=== PATIENT | male | born 1940 | race Caucasian/White ===

== ENCOUNTER 2018-12-12 16:07 | Emergency (ER) | payer MEDICARE, OTHER ==
[2018-12-12] MEDS ORDERED: Diphtheria,Pertussis(Acell),Tetanus Vaccine 0.5 ML Syringe IM ONE (16:45)
[2018-12-12] MEDS ORDERED: Lidocaine 1% 10 ML MDV INJECT ONE (17:46)
[2018-12-12] MEDS ORDERED: cefTRIAXone 1 GM, Lidocaine 1% 2.1 ML IM SCH ×2 (18:15)
--- NOTE | 2018-12-12 18:15 | EDM.PDOC ---
ED HPI GENERAL MEDICAL PROBLEM - General Chief Complaint: Laceration Stated Complaint: FINGER STUCK IN ELECTRIC SOCKET Time Seen by Provider: 12/12/18 16:34 Source of Information: Reports: Patient, Family History Limitations: Reports: No Limitations - History of Present Illness INITIAL COMMENTS - FREE TEXT/NARRATIVE: The patient got his left 2nd, 3rd and 4th fingers cut in a table saw. He is right handed. His tetanus is not up to date. He has no other injury. Onset: Sudden Duration: Minutes: Location: Reports: Upper Extremity, Left (Hand) Quality: Reports: Sharp Severity: Moderate Improves with: Reports: Immobilization Worsens with: Reports: Movement Context: Reports: Other (Cut by a table saw) Associated Symptoms: Reports: No Other Symptoms - Related Data Allergies Allergy/AdvReac Type Severity Reaction Status Date / Time No Known Allergies Allergy Verified 12/12/18 16:34 Home Meds: Home Meds Aspirin 81 mg PO DAILY 12/12/18 [History] Cephalexin [Keflex] 500 mg PO QID #40 capsule 12/12/18 [Rx] Gabapentin [Neurontin] 300 mg PO QID 12/12/18 [History] Glimepiride [Amaryl] 2 mg PO BID 12/12/18 [History] Insulin Glargine,Hum.Rec.Anlog [Toujeo Solostar] 14 units SQ DAILY 12/12/18 [ History] Lisinopril/Hydrochlorothiazide [Lisinopril-Hctz 20-25 mg Tab] 1 tab PO DAILY [History] Omeprazole 20 mg PO DAILY 12/12/18 [History] Saxagliptin HCl [Onglyza] 5 mg PO DAILY 12/12/18 [History] Simvastatin [Zocor] 20 mg PO BEDTIME 12/12/18 [History] metFORMIN HCl [Metformin HCl] 2,500 mg PO BID 12/12/18 [History] Past Medical History Endocrine/Metabolic History: Reports: Diabetes, Type II Social & Family History - Tobacco Use Smoking Status *Q: Never Smoker - Caffeine Use Caffeine Use: Reports: None - Recreational Drug Use Recreational Drug Use: No ED ROS GENERAL - Review of Systems Review Of Systems: See Below Constitutional: Reports: No Symptoms HEENT: Reports: No Symptoms Respiratory: Reports: No Symptoms Cardiovascular: Reports: No Symptoms Endocrine: Reports: No Symptoms GI/Abdominal: Reports: No Symptoms : Reports: No Symptoms Musculoskeletal: Reports: Other (2nd, 3rd and 4th fingers are cut) ED EXAM, SKIN/RASH Exam: See Below Exam Limited By: No Limitations General Appearance: Alert, No Apparent Distress Ears: Normal External Exam Nose: Normal Inspection Head: Atraumatic, Normocephalic Neck: Normal Inspection Respiratory/Chest: No Respiratory Distress Extremities: Other (The 2nd and 3rd finger has the tip of his nail avulsed off. He has a laceration to the tip of the 4th finger with lost of tissue. It is about 2.5cms) ED SKIN PROCEDURES - Laceration/Wound Repair Left Digit - 4th (Ring) Lac/Wound length In cm: 2.5 Appearance: Linear, Clean Distal NVT: Neuro & Vascular Intact, No Tendon Injury Anesthetic Type: Digital Local Anesthesia - Lidocaine (Xylocaine): 1% Plain Skin Prep: Saline Exploration/Debridement/Repair: Wound Explored, In a Bloodless Field, Explored to Base Closed with: Sutures Suture Size: 4-0 # of Sutures: 6 Suture Type: Nylon, Interrupted, Simple Tetanus Status Addressed: Yes Complications: No Course - Vital Signs Last Recorded V/S: Last Vital Signs Temp 98.8 F 12/12/18 16:31 Pulse 61 12/12/18 16:31 Resp 16 12/12/18 16:31 BP 122/71 12/12/18 16:31 Pulse Ox 96 12/12/18 16:31 - Orders/Labs/Meds Orders: Active Orders 24 hr Category Date Time Status Vaccines to be Administered [RC] PER UNIT ROUTINE Care 12/12/18 16:45 Active Hand Comp Min 3V Lt [CR] Stat Exams 12/12/18 16:45 Taken Meds: Medications Discontinued Medications Generic Name Dose Route Start Last Admin Trade Name Freq PRN Reason Stop Dose Admin Diphtheria/Tetanus/Acell Pertussis 0.5 ml 12/12/18 16:45 12/12/18 17:27 Adacel IM 12/12/18 16:46 0.5 ml .ONCE ONE Administration Lidocaine HCl 10 ml 12/12/18 17:46 Xylocaine 1% INJECT 12/12/18 17:47 ONETIME ONE - Re-Assessments/Exams Free Text/Narrative Re-Assessment/Exam: 12/12/18 18:19 I ordered an x-ray of his hand and the tip of the 2nd finger is cut off and some of the tip of the 4th finger is cut off. I was able to suture his 4th finger even though there was some tissue missing. The other fingers could not be sutures. I updated his tetanus and this is an open fracture so I gave him a shot of rocephin. I will get him on keflex and have him follow up with Dr Mckee or Dr Cobb. Departure - Departure Time of Disposition: 18:25 Disposition: Home, Self-Care 01 Condition: Good Clinical Impression: Laceration of ring finger Qualifiers: Encounter type: initial encounter Damage to nail status: without damage Foreign body presence: without foreign body Laterality: left Qualified Code(s): S61.215A - Laceration without foreign body of left ring finger without damage to nail, initial encounter Open fracture of finger of left hand Qualifiers: Encounter type: initial encounter Finger: index finger Phalanx: distal Fracture alignment: nondisplaced Qualified Code(s): S62.661B - Nondisplaced fracture of distal phalanx of left index finger, initial encounter for open fracture Nail avulsion, finger Qualifiers: Encounter type: initial encounter Qualified Code(s): S61.309A - Unspecified open wound of unspecified finger with damage to nail, initial encounter - Discharge Information *PRESCRIPTION DRUG MONITORING PROGRAM REVIEWED*: Not Applicable *COPY OF PRESCRIPTION DRUG MONITORING REPORT IN PATIENT THOMAS: Not Applicable Prescriptions: Cephalexin [Keflex] 500 mg PO QID #40 capsule Referrals: Analy Suarez, [employer] [Primary Care Provider] - Dmitriy Cobb MD [Ordering Only Provider] - 1 Week Additional Instructions: Soak your fingers in warm soapy water 2 times per day and apply antibiotics after. Have the sutures removed in [address] Follow up with Dr Cobb or Dr Mckee at [facility] in [place]. Please return if you are worse. Take the keflex 4 times per day for 10 days. - My Orders Last 24 Hours: My Active Orders 12/12/18 16:45 Vaccines to be Administered [RC] PER UNIT ROUTINE Hand Comp Min 3V Lt [CR] Stat - Assessment/Plan Last 24 Hours: My Active Orders 12/12/18 16:45 Vaccines to be Administered [RC] PER UNIT ROUTINE Hand Comp Min 3V Lt [CR] Stat
--- NOTE | 2018-12-13 10:15 | CR ---
Left hand: Four views of the left hand were obtained. Soft tissue injury is noted within the distal second and fourth finger. Minimal fracture is identified within the distal tuft of the fourth finger. Minimal bony amputation is noted within the distal tuft of the second finger. No additional fracture is appreciated. Cyst noted within the distal radial styloid process. This cyst is felt to be degenerative in etiology. Joint space narrowing is noted within the radiocarpal joint. 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 Mild joint space narrowing is scattered within the DIP and PIP joints. Impression: 1. Soft tissue injury and minimal bony abnormalities as noted above. 2. Degenerative change. Diagnostic code #3
== END 2018-12-12 19:05 | disposition home or self-care (01) ==
LOC: JD.ED 16:07
DX: S62.661B Nondisplaced fracture of distal phalanx of left index finger, initial encounter for open fracture (principal); S61.215A Laceration without foreign body of left ring finger without damage to nail, initial encounter; S61.303A Unspecified open wound of left middle finger with damage to nail, initial encounter; Z23 Encounter for immunization; E11.9 Type 2 diabetes mellitus without complications; Z79.4 Long term (current) use of insulin; Z79.899 Other long term (current) drug therapy; Z79.82 Long term (current) use of aspirin; W31.2XXA Contact with powered woodworking and forming machines, initial encounter
CPT/HCPCS: 12001; 73130; 90471; 90700; 99282; J0696; J2001; 99284

== ENCOUNTER → 2020-11-11 | Day surgery (SDC) | payer MEDICARE, BC ==
[2020-11-11] MEDS: Brimonidine 0.2% Ophth Soln 5 ML Bottle EYELF SCH ×2 (13:37→14:16)
[2020-11-11] MEDS: Phenylephrine 2.5% Ophth Soln 2 ML Bot EYELF SCH ×2 (13:42→13:55)
[2020-11-11] MEDS: Tropicamide 1% Ophth Soln 15 ML Bottle EYELF SCH ×2 (13:50→14:00)
== END ==
LOC: JD.SDS 13:00
PROVIDERS: ATTEND Ophthalmology
DX: H26.493 Other secondary cataract, bilateral (principal); H35.373 Puckering of macula, bilateral; H16.223 Keratoconjunctivitis sicca, not specified as Sjogren's, bilateral; E10.9 Type 1 diabetes mellitus without complications; H02.831 Dermatochalasis of right upper eyelid; H02.834 Dermatochalasis of left upper eyelid; E78.00 Pure hypercholesterolemia, unspecified; I10 Essential (primary) hypertension; F17.200 Nicotine dependence, unspecified, uncomplicated; Z96.1 Presence of intraocular lens; Z98.890 Other specified postprocedural states; Z79.899 Other long term (current) drug therapy; Z79.82 Long term (current) use of aspirin; Z79.84 Long term (current) use of oral hypoglycemic drugs

== ENCOUNTER 2021-07-23 08:54 | Inpatient (IN) | payer MEDICARE, BC ==
--- NOTE | 2021-07-23 09:31 | EDM.PDOC ---
ED HPI GENERAL MEDICAL PROBLEM - General Chief Complaint: Diabetic Complaint Stated Complaint: SORE ON LEFT FOOT OPEN Time Seen by Provider: 07/23/21 09:31 Source of Information: Reports: Patient History Limitations: Reports: No Limitations - History of Present Illness INITIAL COMMENTS - FREE TEXT/NARRATIVE: 81-year-old male presents to the ED in the company of his . He was seen through the clinic on Tuesday, July 20 and diagnosed with a early infection and a scab reportedly over his left lateral fifth toe. He states this morning a complete piece of skin came off the left lateral foot with a Band-Aid. This left exposed skin that is actively bleeding. He was started on cephalexin 500 mg 4 times daily on Tuesday and in spite of this the entire foot is now reddened and inflamed and warm to palpation. It is increased pain as well and he can hardly put a shoe on. He is type II diabetic since 1992 and rarely checks his blood sugars. Uses insulin and oral meds for diabetic control. He does have bilateral lower extremity peripheral neuropathy. He still smoking cigarettes and therefore has a component of peripheral vascular disease. He denies fever chills nausea or vomiting. No change in appetite. Onset: Today, Sudden (3.5 cm piece of skin was avulsed from the lateral aspect of his left foot which is approximately a centimeter half wide exposing skin and subcutaneous tissue.) Onset Date: 07/20/21 (Went to the doctor at the clinic on July 20 with a scab and early infection left lateral toe) Duration: Day(s):, Getting Worse Location: Reports: Lower Extremity, Left (Cellulitis left dorsal foot with an open wound left lateral) Quality: Reports: Ache ( fifth toe), Burning Severity: Mild Improves with: Reports: None Worsens with: Reports: Other (Putting on his shoe.), Movement Context: Denies: Activity, Exercise, Lifting, Sick Contact, Trauma, Other Associated Symptoms: Reports: Malaise, Rash (Erythema and rash dorsal aspect left foot). Denies: Cough, cough w sputum, Diaphoresis, Fever/Chills, Headaches, Loss of Appetite, Seizure, Shortness of Breath, Syncope, Weakness, Other Treatments [employer] PRO[employer] COORDINATOR: Reports: Other (see below) (Only his regular medications.) - Related Data Allergies Allergy/AdvReac Type Severity Reaction Status Date / Time No Known Allergies Allergy Verified 07/23/21 09:25 Home Meds: Home Meds Alpha Lipoic Acid [Lipoic Acid] 1 tab PO DAILY 07/23/21 [History] Aspirin 81 mg PO DAILY 07/23/21 [History] Calcium Carbonate/Vitamin D3 [Calcium 250+D] 1 tab PO DAILY 07/23/21 [History] Cholecalciferol (Vitamin D3) [Vitamin D3] 5,000 unit PO DAILY 07/23/21 [History] Cyanocobalamin (Vitamin B-12) [B-12] 1 tab PO DAILY 07/23/21 [History] Folic Acid 1 mg PO DAILY 07/23/21 [History] Gabapentin [Neurontin] 600 mg PO TID 07/23/21 [History] Glimepiride [Amaryl] 2 mg PO BID 07/23/21 [History] Insulin Glargine,Hum.Rec.Anlog [Toujeo Solostar] 20 units SQ BEDTIME 07/23/21 [History] L.acidoph,Paracasei, B.lactis [Probiotic] 1 tab PO DAILY 07/23/21 [History] Lisinopril/Hydrochlorothiazide [Lisinopril-Hctz 20-25 mg Tab] 1 tab PO DAILY 07/23/21 [History] Magnesium Oxide [Magnesium] 500 mg PO DAILY 07/23/21 [History] Metoprolol Succinate 50 mg PO DAILY 07/23/21 [History] Omeprazole 20 mg PO BID 07/23/21 [History] Saw [place] 1 tab PO DAILY 07/23/21 [History] Saxagliptin HCl [Onglyza] 5 mg PO DAILY 07/23/21 [History] Simvastatin 40 mg PO DAILY 07/23/21 [History] Vit A/C/E/Zinc/Selenium/Copper [Vision Formula Tablet] 1 tab PO DAILY 07/23/21 [History] Zinc 1 tab PO DAILY 07/23/21 [History] cephALEXin [Cephalexin] 500 mg PO QID 07/23/21 [History] metFORMIN [Glucophage XR] 1,000 mg PO BEDTIME 07/23/21 [History] metFORMIN [Glucophage XR] 1,500 mg PO DAILY 07/23/21 [History] Past Medical History HEENT History: Reports: Impaired Vision Respiratory History: Reports: COPD (Continues to smoke cigarettes.) Genitourinary History: Reports: BPH (Nocturia x4) Endocrine/Metabolic History: Reports: Diabetes, Type II (Diagnosed in 1992. Currently on Toujeo at bedtime and takes Metformin and saxagliptin daily) - Past Surgical History HEENT Surgical History: Reports: Cataract Surgery Social & Family History - Tobacco Use Tobacco Use Status *Q: Current Every Day Tobacco User Years of Tobacco use: 50 Packs/Tins Daily: 0.5 Used Tobacco, but Quit: No - Caffeine Use Caffeine Use: Reports: None - Recreational Drug Use Recreational Drug Use: No - Living Situation & Occupation Living situation: Reports: Occupation: Retired ED ROS GENERAL - Review of Systems Review Of Systems: See Below Constitutional: Reports: Malaise, Weakness, Fatigue (Chronic). Denies: Fever, Chills, Night Sweats, Weight Loss, Weight Gain HEENT: Reports: Glasses, Other (Does have macular degeneration and) Respiratory: Reports: Shortness of Breath, Wheezing, Cough (Continues to smoke cigarettes daily smoker's cough usually brings up some sputum in the morning). Denies: Hemoptysis Cardiovascular: Reports: Blood Pressure Problem. Denies: Chest Pain, Dyspnea on Exertion, Orthopnea, Palpitations, PND, Syncope, Other Endocrine: Reports: Fatigue GI/Abdominal: Reports: No Symptoms : Reports: Frequency, Other (Nocturia x3 known BPH) Musculoskeletal: Reports: Neck Pain, Shoulder Pain, Back Pain, Joint Pain (Knees and hips at times) Skin: Reports: Erythema (Infection appears to have started lateral kcurrently has erythema dorsal aspect of his left foot with left fifth toe ) Neurological: Reports: Other (Peripheral neuropathy both lower extremities felt to be due to diabetes.) Psychiatric: Reports: No Symptoms Hematologic/Lymphatic: Reports: No Symptoms Immunologic: Reports: No Symptoms ED EXAM GENERAL NO PERIP PULSE - Physical Exam Exam: See Below Exam Limited By: No Limitations General Appearance: Alert, WD/WN, Anxious, Mild Distress, Other (He is afebrile temperature is not listed in his vital signs. Heart rate was 80 and sinus respiratory 16 with O2 sats of 97% room air. BP 106 172.) Eye Exam: Bilateral Eye: Normal Inspection (Mild blepharal pallor. No scleral icterus), PERRL Throat/Mouth: Other (Tongue is mildly dry.) Head: Atraumatic, Normocephalic Neck: Normal Inspection, Supple, Non-Tender, Full Range of Motion, Limited Range of Motion, Tender Lateral. No: Carotid Bruit, Lymphadenopathy (L), Lymphadenopathy (R) Respiratory/Chest: No Respiratory Distress, Decreased Breath Sounds (Decreased breath sounds in the posterior lung main by 25%.), Wheezing ( Scattered wheezing throughout all lung main). No: Lungs Clear, Normal Breath Sounds Cardiovascular: Regular Rate, Rhythm, No Edema, No Gallop, No JVD, No Murmur, No Rub, Other (Decreased pulses to both feet with barely palpable posterior tibial pulses bilaterally). No: Normal Peripheral Pulses GI/Abdominal: Normal Bowel Sounds, Soft, Non-Tender, No Organomegaly, Other (Distended and obese.). No: Guarding, Rigid, Rebound Back Exam: Other (Increased lumbar lordosis.) Extremities: No Pedal Edema, Increased Warmth (Increased warmth and erythema dorsal aspect of his left foot. There is an area of skin loss lateral left f ifth toe over the MTP joint as well. It especially 3-1/2 cm in length and 1/2 cm in width with full-thickness skin loss. There is active bleeding from the tissues and a prominent bulge in the), Redness Neurological: Alert, Oriented, CN II-XII Intact, Normal Cognition, Sensory/Motor Deficit (Peripheral neuropathy mid tib-fib bilaterally involving both feet). No: Normal Gait Psychiatric: Anxious (Mildly anxious) Skin Exam: Erythema (Dorsal aspect of left foot combined with developing cellulitis.) Course - Vital Signs Last Recorded V/S: Last Vital Signs Temp Pulse 73 07/23/21 14:59 Resp 16 07/23/21 14:59 BP 136/72 07/23/21 14:59 Pulse Ox 97 07/23/21 14:59 - Orders/Labs/Meds Orders: Active Orders 24 hr Category Date Time Status Peripheral IV Care [RC] Q4HR Care 07/23/21 09:45 Active BLOOD CULTURE [MREF] Stat Lab 07/23/21 10:11 Received BLOOD CULTURE [MREF] Stat Lab 07/23/21 10:21 Received CULTURE, ANAEROBE & AEROBE [MREF] Stat Lab 07/23/21 10:10 Received Sodium Chloride 0.9% [Saline Flush] Med 07/23/21 09:45 Active 10 ml FLUSH ASDIRECTED PRN Blood Culture x2 Reflex Set [OM.PC] Stat Oth 07/23/21 09:44 Ordered Peripheral IV Insertion Adult [OM.PC] Stat Oth 07/23/21 09:44 Ordered Medication Orders Acetaminophen (Acetaminophen 325 Mg Tab) 650 mg PO Q4H PRN PRN Reason: Pain (Mild 1-3)/fever Albuterol (Albuterol 6.7 Gm Inhaler) 0 gm INH Q2H PRN PRN Reason: SOB/Wheezing Aspirin (Aspirin 81 Mg Tab.Chew) 81 mg PO DAILY [facility] Calcium Carbonate (Calcium Carbonate/Vitamin D3 600 Mg-200 Units Tab) 1 tab PO DAILY [facility] Cholecalciferol (Cholecalciferol (Vitamin D3) 5,000 Unit Cap) 5,000 unit PO DAILY [facility] Cyanocobalamin (Cyanocobalamin (Vitamin B12) 1,000 Mcg Tab) 1,000 mcg PO DAILY [facility] Enoxaparin Sodium (Enoxaparin 40 Mg/0.4 Ml Syringe) 40 mg SUBCUT Q24H [facility] Last Admin: 07/23/21 16:27 Dose: 40 mg Documented by: [id number] Folic Acid (Folic Acid 1 Mg Tab) 1 mg PO DAILY [facility] Gabapentin (Gabapentin 300 Mg Cap) 600 mg PO TID [facility] Cefepime HCl 2 gm/ Sodium (Chloride) 50 mls @ 100 mls/hr IV Q8H [facility] Last Admin: 07/23/21 19:15 Dose: 100 mls/hr Documented by: [id number] Vancomycin HCl 1 gm/Vancomycin HCl 250 mg/ Sodium Chloride 250 mls @ 166.667 mls/hr IV Q24H [facility] Sodium Chloride (Normal Saline) 1,000 mls @ 75 mls/hr IV ASDIRECTED [facility] Stop: 07/24/21 05:34 Last Admin: 07/23/21 19:15 Dose: 75 mls/hr Documented by: [id number] Insulin Glargine (Insulin Glargine,Hum.Rec.Anlog 100 Unit/Ml 3 Ml Pen) 20 unit SUBCUT BEDTIME [facility] Insulin Human Lispro (Insulin Lispro 100 Unit/Ml 3 Ml Kwikpen) 0 unit SUBCUT WITHMEALSANDBED [facility]; Protocol Last Admin: 07/23/21 17:08 Dose: 2 units Documented by: [id number] Magnesium Oxide (Magnesium Oxide 400 Mg Tab) 400 mg PO DAILY [facility] Metoprolol Succinate (Metoprolol Succinate 50 Mg Tab.Er) 50 mg PO DAILY [facility] Miscellaneous Information (Remove And Replace Nicotine Patch) 1 ea TRDERM DAILY [facility] Morphine Sulfate (Morphine 2 Mg/Ml Syringe) 2 mg IVPUSH Q2H PRN PRN Reason: Pain (severe 7-10) Stop: 07/24/21 15:40 Nicotine (Nicotine 14 Mg/24 Hr Patch) 14 mg TRDERM DAILY [facility] Last Admin: 07/23/21 16:27 Dose: 14 mg Documented by: BRENDAN Ondansetron HCl (Ondansetron 4 Mg/2 Ml Sdv) 4 mg IV Q6H PRN PRN Reason: Nausea/Vomiting Oxycodone HCl (Oxycodone 5 Mg Tab) 5 mg PO Q4H PRN PRN Reason: Pain (moderate 4-6) Pantoprazole Sodium (Pantoprazole 40 Mg Tab.Cr) 40 mg PO DAILY@0700 [facility] Saccharomyces Boulardii (Saccharomyces Boulardii (Probiotic) 250 Mg Cap) 250 mg PO DAILY [facility] Senna/Docusate Sodium (Docusate Sodium/Sennosides 50-8.6 Mg Tab) 1 tab PO BID PRN PRN Reason: Constipation Simvastatin (Simvastatin 40 Mg Tab) 40 mg PO DAILY [facility] Sodium Chloride (Sodium Chloride 0.9% 10 Ml Syringe) 10 ml FLUSH ASDIRECTED PRN PRN Reason: Keep Vein Open Last Admin: 07/23/21 10:14 Dose: 10 ml Documented by: SAVAGE Vancomycin HCl (Pharmacy To Dose - Vancomycin) 1 dose .XX ASDIRECTED [facility] Labs: Laboratory Tests 07/23/21 07/23/21 07/23/21 Range/Units 09:44 09:44 09:56 WBC (4.23-9.07) K/mm3 RBC (4.63-6.08) M/mm3 Hgb (13.7-17.5) gm/dl Hct (40.1-51.0) % MCV (79.0-92.2) fl MCH (25.7-32.2) pg MCHC (32.2-35.5) g/dl RDW Std Deviation (35.1-43.9) fL Plt Count (163-337) K/mm3 MPV (9.4-12.3) fl Neut % (Auto) (34.0-67.9) % Lymph % (Auto) (21.8-53.1) % [place] % (Auto) (5.3-12.2) % Eos % (Auto) (0.8-7.0) Baso % (Auto) (0.1-1.2) % Neut # (Auto) (1.78-5.38) K/mm3 Lymph # (Auto) (1.32-3.57) K/mm3 [place] # (Auto) (0.30-0.82) K/mm3 Eos # (Auto) (0.04-0.54) K/mm3 Baso # (Auto) (0.01-0.08) K/mm3 PT (9.7-12.0) SECONDS INR APTT (21.7-31.4) SECONDS Sodium (136-145) mEq/L Potassium (3.5-5.1) mEq/L Chloride (98-107) mEq/L Carbon Dioxide (21-32) mEq/L Anion Gap (5-15) BUN (7-18) mg/dL Creatinine (0.7-1.3) mg/dL Est Cr Clr Drug Dosing mL/min Estimated GFR (MDRD) (>60) mL/min BUN/Creatinine Ratio (14-18) Glucose (70-99) mg/dL POC Glucose 297 H (70-99) mg/dL Hemoglobin A1c 7.5 H ( - 5.6) % Calcium (8.5-10.1) mg/dL Magnesium (1.8-2.4) mg/dL Total Bilirubin (0.2-1.0) mg/dL AST (15-37) U/L ALT (16-63) U/L Alkaline Phosphatase (46-116) U/L C-Reactive Protein (<1.0) mg/dL NT-Pro-B Natriuret Pep 2206 H (0-450) pg/mL Total Protein (6.4-8.2) g/dl Albumin (3.4-5.0) g/dl Globulin gm/dL Albumin/Globulin Ratio (1-2) 07/23/21 07/23/21 07/23/21 Range/Units 10:11 10:11 10:11 WBC 15.34 H (4.23-9.07) K/mm3 RBC 4.26 L (4.63-6.08) M/mm3 Hgb 12.8 L D (13.7-17.5) gm/dl Hct 39.5 L (40.1-51.0) % MCV 92.7 H (79.0-92.2) fl MCH 30.0 (25.7-32.2) pg MCHC 32.4 (32.2-35.5) g/dl RDW Std Deviation 46.7 H (35.1-43.9) fL Plt Count 283 (163-337) K/mm3 MPV 10.0 (9.4-12.3) fl Neut % (Auto) 83.3 H (34.0-67.9) % Lymph % (Auto) 7.3 L (21.8-53.1) % [place] % (Auto) 8.5 (5.3-12.2) % Eos % (Auto) 0.4 L (0.8-7.0) Baso % (Auto) 0.2 (0.1-1.2) % Neut # (Auto) 12.78 H (1.78-5.38) K/mm3 Lymph # (Auto) 1.12 L (1.32-3.57) K/mm3 [place] # (Auto) 1.30 H (0.30-0.82) K/mm3 Eos # (Auto) 0.06 (0.04-0.54) K/mm3 Baso # (Auto) 0.03 (0.01-0.08) K/mm3 PT 11.1 (9.7-12.0) SECONDS INR 1.00 APTT 32.8 H (21.7-31.4) SECONDS Sodium 130 L D (136-145) mEq/L Potassium 3.8 (3.5-5.1) mEq/L Chloride 92 L (98-107) mEq/L Carbon Dioxide 28 (21-32) mEq/L Anion Gap 13.8 (5-15) BUN 26 H (7-18) mg/dL Creatinine 1.5 H (0.7-1.3) mg/dL Est Cr Clr Drug Dosing 41.23 mL/min Estimated GFR (MDRD) 45 (>60) mL/min BUN/Creatinine Ratio 17.3 (14-18) Glucose 303 H (70-99) mg/dL POC Glucose (70-99) mg/dL Hemoglobin A1c ( - 5.6) % Calcium 8.4 L (8.5-10.1) mg/dL Magnesium 1.8 (1.8-2.4) mg/dL Total Bilirubin 0.5 (0.2-1.0) mg/dL AST 18 (15-37) U/L ALT 21 (16-63) U/L Alkaline Phosphatase 83 (46-116) U/L C-Reactive Protein 20.4 H* (<1.0) mg/dL NT-Pro-B Natriuret Pep (0-450) pg/mL Total Protein 6.9 (6.4-8.2) g/dl Albumin 2.7 L (3.4-5.0) g/dl Globulin 4.2 gm/dL Albumin/Globulin Ratio 0.6 L (1-2) Meds: Medications Generic Name Dose Route Start Last Admin Trade Name Freq PRN Reason Stop Dose Admin Acetaminophen 650 mg 07/23/21 15:38 Acetaminophen 325 Mg Tab PO Q4H PRN Pain (Mild 1-3)/fever Albuterol 0 gm 07/23/21 16:03 Albuterol 6.7 Gm Inhaler INH Q2H PRN SOB/Wheezing Aspirin 81 mg 07/24/21 09:00 Aspirin 81 Mg Tab.Chew PO DAILY [facility] Calcium Carbonate 1 tab 07/24/21 09:00 Calcium Carbonate/Vitamin D3 600 Mg-200 Units Tab PO DAILY [facility] Cholecalciferol 5,000 unit 07/24/21 09:00 Cholecalciferol (Vitamin D3) 5,000 Unit Cap PO DAILY [facility] Cyanocobalamin 1,000 mcg 07/24/21 09:00 Cyanocobalamin (Vitamin B12) 1,000 Mcg Tab PO DAILY [facility] Enoxaparin Sodium 40 mg 07/23/21 16:00 07/23/21 16:27 Enoxaparin 40 Mg/0.4 Ml Syringe SUBCUT 40 mg Q24H [facility] Administration Folic Acid 1 mg 07/24/21 09:00 Folic Acid 1 Mg Tab PO DAILY [facility] Gabapentin 600 mg 07/23/21 21:00 Gabapentin 300 Mg Cap PO TID [facility] Cefepime HCl 2 gm/ Sodium 50 mls @ 100 mls/hr 07/23/21 15:45 07/23/21 19:15 Chloride IV 100 mls/hr Q8H [facility] Administration Vancomycin HCl 1 gm/ 250 mls @ 166.667 mls/hr 07/24/21 16:00 Vancomycin HCl 250 mg/ Sodium IV Chloride Q24H [facility] Sodium Chloride 1,000 mls @ 75 mls/hr 07/23/21 16:15 07/23/21 19:15 Normal Saline IV 07/24/21 05:34 75 mls/hr ASDIRECTED [facility] Administration Insulin Glargine 20 unit 07/23/21 21:00 Insulin Glargine,Hum.Rec.Anlog 100 Unit/Ml 3 Ml Pen SUBCUT BEDTIME [facility] Insulin Human Lispro 0 unit 07/23/21 17:30 07/23/21 17:08 Insulin Lispro 100 Unit/Ml 3 Ml Kwikpen SUBCUT 2 units WITHMEALSANDBED [facility] Administration Protocol Magnesium Oxide 400 mg 07/24/21 09:00 Magnesium Oxide 400 Mg Tab PO DAILY [facility] Metoprolol Succinate 50 mg 07/24/21 09:00 Metoprolol Succinate 50 Mg Tab.Er PO DAILY [facility] Miscellaneous Information 1 ea 07/24/21 09:00 Remove And Replace Nicotine Patch TRDERM DAILY [facility] Morphine Sulfate 2 mg 07/23/21 15:38 Morphine 2 Mg/Ml Syringe IVPUSH 07/24/21 15:40 Q2H PRN Pain (severe 7-10) Nicotine 14 mg 07/23/21 15:45 07/23/21 16:27 Nicotine 14 Mg/24 Hr Patch TRDERM 14 mg DAILY [facility] Administration Ondansetron HCl 4 mg 07/23/21 15:38 Ondansetron 4 Mg/2 Ml Sdv IV Q6H PRN Nausea/Vomiting Oxycodone HCl 5 mg 07/23/21 15:38 Oxycodone 5 Mg Tab PO Q4H PRN Pain (moderate 4-6) Pantoprazole Sodium 40 mg 07/24/21 07:00 Pantoprazole 40 Mg Tab.Cr PO DAILY@0700 [facility] Saccharomyces Boulardii 250 mg 07/24/21 09:00 Saccharomyces Boulardii (Probiotic) 250 Mg Cap PO DAILY [facility] Senna/Docusate Sodium 1 tab 07/23/21 15:38 Docusate Sodium/Sennosides 50-8.6 Mg Tab PO BID PRN Constipation Simvastatin 40 mg 07/24/21 09:00 Simvastatin 40 Mg Tab PO DAILY [facility] Sodium Chloride 10 ml 07/23/21 09:45 07/23/21 10:14 Sodium Chloride 0.9% 10 Ml Syringe FLUSH 10 ml ASDIRECTED PRN Administration Keep Vein Open Vancomycin HCl 1 dose 07/23/21 15:45 Pharmacy To Dose - Vancomycin .XX ASDIRECTED [facility] Discontinued Medications Generic Name Dose Route Start Last Admin Trade Name Freq PRN Reason Stop Dose Admin Linezolid 600 mg/ Premix 300 mls @ 300 mls/hr 07/23/21 09:45 07/23/21 10:13 IV 07/23/21 10:44 300 mls/hr ONETIME ONE Administration Vancomycin HCl 2 gm/ Sodium 500 mls @ 250 mls/hr 07/23/21 16:00 07/23/21 16:27 Chloride IV 07/23/21 17:59 250 mls/hr ONETIME ONE Administration Non-Formulary Medication 1,000 mg 07/23/21 21:00 Metformin PO BEDTIME [facility] Non-Formulary Medication 1,500 mg 07/24/21 09:00 Metformin PO DAILY [facility] - Radiology Interpretation Free Text/Narrative:: 81-year-old male presents to the ED with a new wound starting with a scab over his left lateral foot over the fifth MTP joint last week. He was seen in the clinic on 20 July and was prescribed cephalexin 500 mg 3 times daily which he has been taking. This morning when he took off a bandage over this area a large piece of skin came with it this is 3-1/2 cm in length and 1/2 cm in width with exposure of the underlying soft tissues and active bleeding. Patient has peripheral neuropathy from diabetes and has very little discomfort in the area. The dorsal aspect of his left foot is markedly erythematous and warm to palpation combined with developing cellulitis. This spreads up the anterior aspect of his left leg with increased warmth primarily. He denies any systemic signs of infection such as fever chills nausea or vomiting. He is diabetic since 1992 type II. Does not check his sugars regularly. States they are always good. Plan it appears that the cephalexin is not controlling the infection it may well be MRSA. He will be given a dose of Zyvox 600 mg IV as soon as blood cultures have been obtained. Wound cultures will be obtained. X- ray of the left foot will be obtained. Routine labs including CBC CMP and blood cultures x2 to be done. - Re-Assessments/Exams Free Text/Narrative Re-Assessment/Exam: 07/23/21 11:20: X-rays of the left foot were obtained x3 views. Soft tissue swelling is seen along the dorsal lateral foot. No focal bony erosions are seen. Bony density is noted at the medial talus compatible with old injury. No definite evidence of osteomyelitis evident in the great toe. 07/23/21 11:48 Lab tests reveal an elevated white count at 15.34 with a left shift of 83.3% neutrophils. Hemoglobin is 12.8 with hematocrit of 39.5. MCV is 92.7. Platelet count is 283,000. PT is 11.1 with an INR of 1.0 and a PTT of 32.8. Sodium is low at 130 with a potassium of 3.8. Chloride 92 with a bicarb of 28. Anion gap is 13.8. BUN is 26 with a creatinine of 1.5 GFR is 45. Glucose is 303 and he is diabetic. His bedside glucose was 297. Calcium is 8.4 magnesium is 1.8. Liver function is normal. CRP is pending. Total protein is 6.9 with an albumin fraction low at 2.7. Globulin is 4.2 07/23/21 12:07 CRP is elevated at 20.4 and BNP is elevated at 2206. I have spoken with on-call hospitalist Dr. Beto Reid is a bed has now become available her hospital. He will see the patient in the ED with a view to admission to the hospital due to failed outpatient management of cellulitis left dorsal foot. Glycosylated protein was 7.5. COVID-19 screen is negative. 07/23/21 14:30: His bed is now available. He did receive dinner while in the department. He will be admitted to the hospital for wound care and intravenous antibiotics for suspected MRSA infection dorsal aspect of his left foot with some signs of early systemic infection. Departure - Departure Time of Disposition: 14:30 Disposition: Admitted As Inpatient 68 Condition: Fair Clinical Impression: Cellulitis of foot, left, Hyponatremia Type 2 diabetes mellitus Qualifiers: Diabetes mellitus terminal manager insulin use: with alf use Diabetes mellitus complication status: with neurologic complications Diabetes mellitus complication detail: with polyneuropathy Qualified Code(s): E11.42 - Type 2 diabetes mellitus with diabetic polyneuropathy CHF (congestive heart failure) Qualifiers: Heart failure type: diastolic Heart failure chronicity: chronic Qualified Code(s): I50.32 - Chronic diastolic (congestive) heart failure Open wound of left foot Qualifiers: Encounter type: initial encounter Qualified Code(s): S91.302A - Unspecified open wound, left foot, initial encounter Chronic renal insufficiency, stage III (moderate) Qualifiers: Chronic kidney disease stage 3 subtype: stage 3a (GFR 45-59) Qualified Code(s): N18.31 - Chronic kidney disease, stage 3a - Discharge Information *PRESCRIPTION DRUG MONITORING PROGRAM REVIEWED*: Not Applicable *COPY OF PRESCRIPTION DRUG MONITORING REPORT IN PATIENT THOMAS: Not Applicable Sepsis Event Note (ED) - Evaluation Sepsis Screening Result: No Definite Risk - Focused Exam Vital Signs: Vital Signs Pulse Resp BP Pulse Ox 07/23/21 09:21 79 16 106/72 97 - My Orders Last 24 Hours: My Active Orders 07/23/21 09:44 Blood Culture x2 Reflex Set [OM.PC] Stat Peripheral IV Insertion Adult [OM.PC] Stat 07/23/21 09:45 Peripheral IV Care [RC] Q4HR Sodium Chloride 0.9% [Saline Flush] 10 ml FLUSH ASDIRECTED PRN 07/23/21 10:10 CULTURE, ANAEROBE & AEROBE [MREF] Stat 07/23/21 10:11 BLOOD CULTURE [MREF] Stat 07/23/21 10:21 BLOOD CULTURE [MREF] Stat - Assessment/Plan Last 24 Hours: My Active Orders 07/23/21 09:44 Blood Culture x2 Reflex Set [OM.PC] Stat Peripheral IV Insertion Adult [OM.PC] Stat 07/23/21 09:45 Peripheral IV Care [RC] Q4HR Sodium Chloride 0.9% [Saline Flush] 10 ml FLUSH ASDIRECTED PRN 07/23/21 10:10 CULTURE, ANAEROBE & AEROBE [MREF] Stat 07/23/21 10:11 BLOOD CULTURE [MREF] Stat 07/23/21 10:21 BLOOD CULTURE [MREF] Stat
[2021-07-23] MEDS ORDERED: Sodium Chloride 0.9% 10 ML Syringe FLUSH PRN (09:45)
[2021-07-23] MEDS ORDERED: Linezolid 600 MG in Premix Bag 1 BAG IV ONE (09:45)
--- NOTE | 2021-07-23 11:29 | CR ---
Left foot: 3 views of the left foot were obtained. Comparison: No prior foot study is available. Soft tissue swelling is seen along the lateral distal foot. No focal bony erosions are seen. Bony density is noted off the medial talus compatible with old injury. Impression: 1. Soft tissue swelling along the lateral foot. 2. No focal bony erosions are seen. 3. Old injury off the medial talus. Diagnostic code #2
[2021-07-23 11:49] LABS: HEMOGLOBIN A1C 7.5 %
[2021-07-23] MEDS ORDERED: oxyCODONE 5 MG Tab PO PRN (15:38)
[2021-07-23] MEDS ORDERED: Ondansetron 4 MG/2 ML SDV IV PRN (15:38)
[2021-07-23] MEDS ORDERED: Morphine 2 MG/ML SYRINGE IVPUSH PRN (15:38)
[2021-07-23] MEDS ORDERED: Acetaminophen 325 MG Tab PO PRN (15:38)
--- NOTE | 2021-07-23 15:42 | PCM.HP.2 ---
<Lon Mueller - Last Filed: 07/23/21 16:36> H&P History of Present Illness - General Date of Service: 07/23/21 Admit Problem/Dx: Admission Diagnosis/Problem Admission Diagnosis/Problem Cellulitis and abscess of left lower extremity Source of Information: Patient, Old Records, Provider, RN, RN Notes Reviewed, Significant Other - History of Present Illness Initial Comments - Free Text/Narative: This is a 81-year-old male who presents to ED on the morning of 07-23-2021 with a diabetic foot ulcer on his left foot which has gotten worse despite outpatient treatment. Per his report he was seen at the clinic on Tuesday, July 20 and diagnosed with a early infection in the scab that was over his left lateral fifth toe. He was started on cephalexin 500 mg 4 times a day. Today he was switching Band-Aids any piece of skin came off which was actively bleeding. His entire foot is now red and warm. It is edematous to the point where he can barely put a shoe on and he does note some increased pain, although he does have a history of diabetic neuropathy. He has been a type II diabetic since 1982 but rarely checks his sugars. Use a combination of insulin and oral medications for diabetic control. He is a daily half pack a days cigarette smoker. Denies any recent fever, chills, nausea or vomiting. No decreased appetite. In the ED pulse was 79. Respirations 16. Blood pressure 106/72. Pulse ox 97% on room air. Labs are obtained with a WBC that is elevated at 15.34. Hemoglobin is 12.8. Platelet of 283,000. Neutrophils are elevated 83.3%. INR is 1.0. APTT is 32.8. Sodium is low at 130. Potassium 3.8. Chloride 92. Carbon dioxide 28. Anion gap is 13.8. BUN is 26. Creatinine 1.5. GFR is 45. Glucose is 303. Hemoglobin A1c is 7.5. Calcium is 8.4. Magnesium 1.8. Bilirubin 0.5. AST is 18, ALT 21, alkaline phosphatase 83. CRP is 20.4. P rotein is 6.9. Albumin 2.7. proBNP is elevated at 2206. X-ray of the left foot is obtained showing soft tissue swelling along the lateral foot but no focal bony erosions are seen. There is also old injury of the medial talus noted. Cellulitis is noted to extend up to the anterior aspect of his left leg with increased warmth. He is given 600 mg linezolid. Blood cultures were obtained prior to IV antibiotics. He carries a history of COPD, BPH, type 2 diabetes, nicotine use, CKD. He is a full code. His PCP is Analy Suarez NP. - Related Data Allergies/Adverse Reactions: Allergies Allergy/AdvReac Type Severity Reaction Status Date / Time No Known Allergies Allergy Verified 07/23/21 09:25 Home Medications: Home Meds Alpha Lipoic Acid [Lipoic Acid] 1 tab PO DAILY 07/23/21 [History] Ascorbic Acid [Vitamin C] 1,500 mg PO 07/23/21 [History] Aspirin 81 mg PO DAILY 07/23/21 [History] Calcium Carbonate/Vitamin D3 [Calcium 250+D] 1 tab PO DAILY 07/23/21 [History] Cholecalciferol (Vitamin D3) [Vitamin D3] 5,000 unit PO DAILY 07/23/21 [History] Cyanocobalamin (Vitamin B-12) [B-12] 1 tab PO DAILY 07/23/21 [History] Folic Acid 1 mg PO DAILY 07/23/21 [History] Gabapentin [Neurontin] 600 mg PO TID 07/23/21 [History] Glimepiride [Amaryl] 2 mg PO BID 07/23/21 [History] Insulin Glargine,Hum.Rec.Anlog [Touoral Solostar] 20 units SQ BEDTIME 07/23/21 [History] L.acidoph,Paracasei, B.lactis [Probiotic] 1 tab PO DAILY 07/23/21 [History] Lisinopril/Hydrochlorothiazide [Lisinopril-Hctz 20-25 mg Tab] 1 tab PO DAILY 1 [History] Magnesium Oxide [Magnesium] 500 mg PO DAILY 07/23/21 [History] Metoprolol Succinate 50 mg PO DAILY 07/23/21 [History] Omeprazole 20 mg PO DAILY 07/23/21 [History] Saw [place] 1 tab PO DAILY 07/23/21 [History] Saxagliptin HCl [Onglyza] 5 mg PO DAILY 07/23/21 [History] Simvastatin 40 mg PO DAILY 07/23/21 [History] Vit A/C/E/Zinc/Selenium/Copper [Vision Formula Tablet] 1 tab PO DAILY 07/23/21 [History] Zinc 1 tab PO DAILY 07/23/21 [History] cephALEXin [Cephalexin] 500 mg PO QID 07/23/21 [History] metFORMIN [Glucophage XR] 1,000 mg PO BEDTIME 07/23/21 [History] metFORMIN [Glucophage XR] 1,500 mg PO DAILY 07/23/21 [History] Past Medical History HEENT History: Reports: Impaired Vision Respiratory History: Reports: COPD Genitourinary History: Reports: BPH Endocrine/Metabolic History: Reports: Diabetes, Type II - Past Surgical History HEENT Surgical History: Reports: Cataract Surgery Other Respiratory Surgeries/Procedures: denies copd/breathing problems but COPD listed from prior history Social & Family History - Family History Family Medical History: No Pertinent Family History - Tobacco Use Tobacco Use Status *Q: Current Every Day Tobacco User Years of Tobacco use: 50 Packs/Tins Daily: 0.5 Used Tobacco, but Quit: No - Caffeine Use Caffeine Use: Reports: None - Recreational Drug Use Recreational Drug Use: No - Living Situation & Occupation Living situation: Reports: Occupation: Retired H&P Review of Systems - Review of Systems: Review Of Systems: See Below General: Denies: Fever, Malaise, Weakness, Fatigue HEENT: Reports: No Symptoms. Denies: Headaches, Sore Throat Pulmonary: Reports: No Symptoms. Denies: Shortness of Breath, Wheezing, Pleuritic Chest Pain, Cough, Sputum, Hemoptysis Cardiovascular: Reports: Edema (Left lower extremity ). Denies: Chest Pain, Palpitations, Dyspnea on Exertion, Orthopnea, Lightheadedness, Claudication Gastrointestinal: Reports: No Symptoms. Denies: Abdominal Pain, Constipation, Diarrhea, Nausea, Vomiting Genitourinary: Reports: Retention (chronic ) Musculoskeletal: Reports: Leg Pain (left), Foot Pain (left) Skin: Reports: Erythema (left lower extremity ), Wound. Denies: Cyanosis Psychiatric: Reports: No Symptoms. Denies: Confusion Neurological: Reports: Pre-Existing Deficit (Diabetic neuropathy affecting extremities). Denies: Confusion, Dizziness, Headache, Numbness, Seizure, Syncop e, Tingling, Tremors, Trouble Speaking, Difficulty Walking, Weakness, Change in Speech, Gait Disturbance Hematologic/Lymphatic: Reports: No Symptoms Immunologic: Reports: No Symptoms Exam - Exam Exam: See Below - Vital Signs Vital Signs: Last Vital Signs Temp Pulse 79 07/23/21 09:21 Resp 16 07/23/21 09:21 BP 106/72 07/23/21 09:21 Pulse Ox 97 07/23/21 09:21 Weight: 86.046 kg - Exam Quality Assessment: DVT Prophylaxis. No: Supplemental Oxygen, Urinary Catheter General: Alert, Oriented, Cooperative. No: Mild Distress HEENT: Conjunctiva Clear, EACs Clear, Mucosa Moist & [place], Posterior Pharynx Clear Neck: Supple, Trachea Midline Lungs: Clear to Auscultation, Normal Respiratory Effort, Decreased Breath Sounds Cardiovascular: Regular Rate, Regular Rhythm GI/Abdominal Exam: Normal Bowel Sounds, Soft, Non-Tender, No Distention Rectal (Males) Exam: Deferred Back Exam: Normal Inspection, Full Range of Motion Extremities: Normal Range of Motion, Pedal Edema (Significant edema to left lower extremity), Leg Pain (Left lower extremityminimal due to diabetic neuropathy), Increased Warmth, Redness (Dorsal aspect of left foot consistent with developing cellulitis), Other (Serosanguineous fluid draining from left lower extremity wound. Approximate 1.5 cm blister which appears to have serosanguineous fluid noted on lateral aspect of foot. Minimal bleeding. Patient reports minimal pain due to diabetic neuropathy.). No: Normal Inspection Skin: Warm, Dry, Intact Neurological: Cranial Nerves Intact (Grossly) Neuro Extensive - Mental Status: Alert, Oriented x3, Normal Mood/Affect - Patient Data Lab Results Last 24 hrs: Laboratory Results - last 24 hr 07/23/21 07/23/21 07/23/21 Range/Units 09:44 09:44 09:56 WBC (4.23-9.07) K/mm3 RBC (4.63-6.08) M/mm3 Hgb (13.7-17.5) gm/dl Hct (40.1-51.0) % MCV (79.0-92.2) fl MCH (25.7-32.2) pg MCHC (32.2-35.5) g/dl RDW Std Deviation (35.1-43.9) fL Plt Count (163-337) K/mm3 MPV (9.4-12.3) fl Neut % (Auto) (34.0-67.9) % Lymph % (Auto) (21.8-53.1) % [place] % (Auto) (5.3-12.2) % Eos % (Auto) (0.8-7.0) Baso % (Auto) (0.1-1.2) % Neut # (Auto) (1.78-5.38) K/mm3 Lymph # (Auto) (1.32-3.57) K/mm3 [place] # (Auto) (0.30-0.82) K/mm3 Eos # (Auto) (0.04-0.54) K/mm3 Baso # (Auto) (0.01-0.08) K/mm3 PT (9.7-12.0) SECONDS INR APTT (21.7-31.4) SECONDS Sodium (136-145) mEq/L Potassium (3.5-5.1) mEq/L Chloride (98-107) mEq/L Carbon Dioxide (21-32) mEq/L Anion Gap (5-15) BUN (7-18) mg/dL Creatinine (0.7-1.3) mg/dL Est Cr Clr Drug Dosing mL/min Estimated GFR (MDRD) (>60) mL/min BUN/Creatinine Ratio (14-18) Glucose (70-99) mg/dL POC Glucose 297 H (70-99) mg/dL Hemoglobin A1c 7.5 H ( - 5.6) % Calcium (8.5-10.1) mg/dL Magnesium (1.8-2.4) mg/dL Total Bilirubin (0.2-1.0) mg/dL AST (15-37) U/L ALT (16-63) U/L Alkaline Phosphatase (46-116) U/L C-Reactive Protein (<1.0) mg/dL NT-Pro-B Natriuret Pep 2206 H (0-450) pg/mL Total Protein (6.4-8.2) g/dl Albumin (3.4-5.0) g/dl Globulin gm/dL Albumin/Globulin Ratio (1-2) 07/23/21 07/23/21 07/23/21 Range/Units 10:11 10:11 10:11 WBC 15.34 H (4.23-9.07) K/mm3 RBC 4.26 L (4.63-6.08) M/mm3 Hgb 12.8 L D (13.7-17.5) gm/dl Hct 39.5 L (40.1-51.0) % MCV 92.7 H (79.0-92.2) fl MCH 30.0 (25.7-32.2) pg MCHC 32.4 (32.2-35.5) g/dl RDW Std Deviation 46.7 H (35.1-43.9) fL Plt Count 283 (163-337) K/mm3 MPV 10.0 (9.4-12.3) fl Neut % (Auto) 83.3 H (34.0-67.9) % Lymph % (Auto) 7.3 L (21.8-53.1) % [place] % (Auto) 8.5 (5.3-12.2) % Eos % (Auto) 0.4 L (0.8-7.0) Baso % (Auto) 0.2 (0.1-1.2) % Neut # (Auto) 12.78 H (1.78-5.38) K/mm3 Lymph # (Auto) 1.12 L (1.32-3.57) K/mm3 [place] # (Auto) 1.30 H (0.30-0.82) K/mm3 Eos # (Auto) 0.06 (0.04-0.54) K/mm3 Baso # (Auto) 0.03 (0.01-0.08) K/mm3 PT 11.1 (9.7-12.0) SECONDS INR 1.00 APTT 32.8 H (21.7-31.4) SECONDS Sodium 130 L D (136-145) mEq/L Potassium 3.8 (3.5-5.1) mEq/L Chloride 92 L (98-107) mEq/L Carbon Dioxide 28 (21-32) mEq/L Anion Gap 13.8 (5-15) BUN 26 H (7-18) mg/dL Creatinine 1.5 H (0.7-1.3) mg/dL Est Cr Clr Drug Dosing 41.23 mL/min Estimated GFR (MDRD) 45 (>60) mL/min BUN/Creatinine Ratio 17.3 (14-18) Glucose 303 H (70-99) mg/dL POC Glucose (70-99) mg/dL Hemoglobin A1c ( - 5.6) % Calcium 8.4 L (8.5-10.1) mg/dL Magnesium 1.8 (1.8-2.4) mg/dL Total Bilirubin 0.5 (0.2-1.0) mg/dL AST 18 (15-37) U/L ALT 21 (16-63) U/L Alkaline Phosphatase 83 (46-116) U/L C-Reactive Protein 20.4 H* (<1.0) mg/dL NT-Pro-B Natriuret Pep (0-450) pg/mL Total Protein 6.9 (6.4-8.2) g/dl Albumin 2.7 L (3.4-5.0) g/dl Globulin 4.2 gm/dL Albumin/Globulin Ratio 0.6 L (1-2) Result Diagrams: 07/23/21 10:11 07/23/21 10:11 Sepsis Event Note - Evaluation Sepsis Screening Result: No Definite Risk - Focused Exam Vital Signs: Vital Signs Pulse Resp BP Pulse Ox 07/23/21 09:21 79 16 106/72 97 - Problem List (1) Cellulitis of foot, left SNOMED Code(s): 626997306 ICD Code: L03.116 - CELLULITIS OF LEFT LOWER LIMB Status: Acute Priority: High Current Visit: Yes (2) Open wound of left foot SNOMED Code(s): 83962724238889646 ICD Code: S91.302A - UNSPECIFIED OPEN WOUND, LEFT FOOT, INITIAL ENCOUNTER Status: Acute Priority: High Current Visit: Yes Qualifiers: Encounter type: initial encounter Qualified Code(s): S91.302A - Unspecified open wound, left foot, initial encounter (3) Type 2 diabetes mellitus SNOMED Code(s): 99616226 ICD Code: E11.9 - TYPE 2 DIABETES MELLITUS WITHOUT COMPLICATIONS Status: C hronic Priority: High Current Visit: Yes Qualifiers: 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 Diabetes mellitus complication status: with neurologic complications Diabetes mellitus complication detail: with polyneuropathy Qualified Code(s): E11.42 - Type 2 diabetes mellitus with diabetic polyneuropathy; Z79.4 - detention (current) use of insulin (4) COPD (chronic obstructive pulmonary disease) SNOMED Code(s): 15380600 ICD Code: J44.9 - CHRONIC OBSTRUCTIVE PULMONARY DISEASE, UNSPECIFIED Status: Chronic Priority: Low Current Visit: No Qualifiers: COPD type: unspecified COPD Qualified Code(s): J44.9 - Chronic obstructive pulmonary disease, unspecified (5) BPH (benign prostatic hyperplasia) SNOMED Code(s): 399457168 ICD Code: N40.0 - BENIGN PROSTATIC HYPERPLASIA WITHOUT LOWER URINRY TRACT SYMP Status: Chronic Priority: Low Current Visit: No Qualifiers: Lower urinary tract symptom presence: symptoms absent Qualified Code(s): N40.0 - Benign prostatic hyperplasia without lower urinary tract symptoms (6) Nicotine use SNOMED Code(s): 046054100 ICD Code: Z72.0 - TOBACCO USE Status: Chronic Priority: Medium Current Visit: Yes (7) TREY (acute kidney injury) SNOMED Code(s): 63775801, 62405476 ICD Code: N17.9 - ACUTE KIDNEY FAILURE, UNSPECIFIED Status: Acute Priority: Medium Current Visit: Yes (8) Hyponatremia SNOMED Code(s): 09615782 ICD Code: E87.1 - HYPO-OSMOLALITY AND HYPONATREMIA Status: Acute Priority: Medium Current Visit: Yes (9) Elevated C-reactive protein (CRP) SNOMED Code(s): 256109557416846 ICD Code: R79.82 - ELEVATED C-REACTIVE PROTEIN (CRP) Status: Acute Priority: High Current Visit: Yes (10) Elevated brain natriuretic peptide (BNP) level SNOMED Code(s): 377984509, 870894710 ICD Code: R79.89 - OTHER SPECIFIED ABNORMAL FINDINGS OF BLOOD CHEMISTRY Status: Acute Priority: Low Current Visit: Yes (11) Diabetic neuropathy SNOMED Code(s): 111916543, 001199010, 731950422 ICD Code: E11.40 - TYPE 2 DIABETES MELLITUS WITH DIABETIC NEUROPATHY, UNSP Status: Chronic Priority: Medium Current Visit: Yes Qualifiers: Diabetes mellitus type: type 2 Diabetes mellitus complication detail: diabetic polyneuropathy Qualified Code(s): E11.42 - Type 2 diabetes mellitus with diabetic polyneuropathy Problem List Initiated/Reviewed/Updated: Yes Orders Last 24hrs: Active Orders 24 hr Category Date Time Status Admission Status [Patient Status] [ADT] Routine ADT 07/23/21 13:03 Active Peripheral IV Care [RC] Q4HR Care 07/23/21 09:45 Active Consult to Physical Therapy [PT Evaluation and Cons 07/23/21 13:24 Active Treatment] [CONS] Routine BLOOD CULTURE [MREF] Stat Lab 07/23/21 10:11 Received BLOOD CULTURE [MREF] Stat Lab 07/23/21 10:21 Received CULTURE, ANAEROBE & AEROBE [MREF] Stat Lab 07/23/21 10:10 Received Sodium Chloride 0.9% [Saline Flush] Med 07/23/21 09:45 Active 10 ml FLUSH ASDIRECTED PRN Blood Culture x2 Reflex Set [OM.PC] Stat Oth 07/23/21 09:44 Ordered Peripheral IV Insertion Adult [OM.PC] Stat Oth 07/23/21 09:44 Ordered Medication Orders Sodium Chloride (Sodium Chloride 0.9% 10 Ml Syringe) 10 ml FLUSH ASDIRECTED PRN PRN Reason: Keep Vein Open Last Admin: 07/23/21 10:14 Dose: 10 ml Documented by: SAVAGE Assessment/Plan Comment:: Cellulitis of foot, left Open wound of left foot Elevated C-reactive protein (CRP) Diabetic Neuropathy * Outpatient podiatry after discharge * PT wound care * PT evaluation * Every 8 hour meropenem * Vancomycin with pharmacy to dose * Wound cultures pending * Demarcate area of inflammation to monitor improvement/worsening * Continue home gabapentin * As needed pain medications * Elevate extremities at least twice daily * Procalcitonin pending Type 2 diabetes mellitus (A1C 7.5%) * Hold home p.o. diabetic medications * Consistent carbohydrate diet * Medium intensity sliding scale insulin * Continue home long-acting insulin * Consider dietitian consult * Consider community nutrition educator * 4 times daily before meals and bedtime blood glucose checks TREY (acute kidney injury) * IV fluids as ordered * Caution with nephrotoxic medications * Hold home lisinopril/HCTZ Hyponatremia * Hold home HCTZ * IV fluids as ordered * Recheck labs in a.m. * Check urine protein, urine creatinine, and urine sodium Elevated BNP * No history of CHF * Patient denies any respiratory symptoms * Unilateral left-sided pedal edema due to cellulitis * No orthopnea or other concerns * Will defer further work-up at this time * Consider echocardiogram if warranted COPD (chronic obstructive pulmonary disease) * No acute concerns * Albuterol MDI as needed BPH (benign prostatic hyperplasia) * No acute concerns * Not on any home medications Nicotine use * Nicotine patch as ordered Daily * Cessation counseling * Offer nicotine patches at discharge Code status: Full code PCP: Analy Suarez NP DVT prophylaxis: Ivananox Disposition: Patient mated inpatient for management of failed outpatient left lower extremity cellulitis. Length of stay likely 3 to 4 days pending improvement. - Mortality Measure Prognosis:: Good <Beto Reid - Last Filed: 07/23/21 16:41> H&P History of Present Illness - General Admit Problem/Dx: Admission Diagnosis/Problem Admission Diagnosis/Problem Cellulitis and abscess of left lower extremity Exam - Vital Signs Vital Signs: Last Vital Signs Temp Pulse 73 07/23/21 14:59 Resp 16 07/23/21 14:59 BP 136/72 07/23/21 14:59 Pulse Ox 97 07/23/21 14:59 - Patient Data Lab Results Last 24 hrs: Laboratory Results - last 24 hr 07/23/21 07/23/21 07/23/21 Range/Units 09:44 09:44 09:56 WBC (4.23-9.07) K/mm3 RBC (4.63-6.08) M/mm3 Hgb (13.7-17.5) gm/dl Hct (40.1-51.0) % MCV (79.0-92.2) fl MCH (25.7-32.2) pg MCHC (32.2-35.5) g/dl RDW Std Deviation (35.1-43.9) fL Plt Count (163-337) K/mm3 MPV (9.4-12.3) fl Neut % (Auto) (34.0-67.9) % Lymph % (Auto) (21.8-53.1) % [place] % (Auto) (5.3-12.2) % Eos % (Auto) (0.8-7.0) Baso % (Auto) (0.1-1.2) % Neut # (Auto) (1.78-5.38) K/mm3 Lymph # (Auto) (1.32-3.57) K/mm3 [place] # (Auto) (0.30-0.82) K/mm3 Eos # (Auto) (0.04-0.54) K/mm3 Baso # (Auto) (0.01-0.08) K/mm3 PT (9.7-12.0) SECONDS INR APTT (21.7-31.4) SECONDS Sodium (136-145) mEq/L Potassium (3.5-5.1) mEq/L Chloride (98-107) mEq/L Carbon Dioxide (21-32) mEq/L Anion Gap (5-15) BUN (7-18) mg/dL Creatinine (0.7-1.3) mg/dL Est Cr Clr Drug Dosing mL/min Estimated GFR (MDRD) (>60) mL/min BUN/Creatinine Ratio (14-18) Glucose (70-99) mg/dL POC Glucose 297 H (70-99) mg/dL Hemoglobin A1c 7.5 H ( - 5.6) % Calcium (8.5-10.1) mg/dL Magnesium (1.8-2.4) mg/dL Total Bilirubin (0.2-1.0) mg/dL AST (15-37) U/L ALT (16-63) U/L Alkaline Phosphatase (46-116) U/L C-Reactive Protein (<1.0) mg/dL NT-Pro-B Natriuret Pep 2206 H (0-450) pg/mL Total Protein (6.4-8.2) g/dl Albumin (3.4-5.0) g/dl Globulin gm/dL Albumin/Globulin Ratio (1-2) 07/23/21 07/23/21 07/23/21 Range/Units 10:11 10:11 10:11 WBC 15.34 H (4.23-9.07) K/mm3 RBC 4.26 L (4.63-6.08) M/mm3 Hgb 12.8 L D (13.7-17.5) gm/dl Hct 39.5 L (40.1-51.0) % MCV 92.7 H (79.0-92.2) fl MCH 30.0 (25.7-32.2) pg MCHC 32.4 (32.2-35.5) g/dl RDW Std Deviation 46.7 H (35.1-43.9) fL Plt Count 283 (163-337) K/mm3 MPV 10.0 (9.4-12.3) fl Neut % (Auto) 83.3 H (34.0-67.9) % Lymph % (Auto) 7.3 L (21.8-53.1) % [place] % (Auto) 8.5 (5.3-12.2) % Eos % (Auto) 0.4 L (0.8-7.0) Baso % (Auto) 0.2 (0.1-1.2) % Neut # (Auto) 12.78 H (1.78-5.38) K/mm3 Lymph # (Auto) 1.12 L (1.32-3.57) K/mm3 [place] # (Auto) 1.30 H (0.30-0.82) K/mm3 Eos # (Auto) 0.06 (0.04-0.54) K/mm3 Baso # (Auto) 0.03 (0.01-0.08) K/mm3 PT 11.1 (9.7-12.0) SECONDS INR 1.00 APTT 32.8 H (21.7-31.4) SECONDS Sodium 130 L D (136-145) mEq/L Potassium 3.8 (3.5-5.1) mEq/L Chloride 92 L (98-107) mEq/L Carbon Dioxide 28 (21-32) mEq/L Anion Gap 13.8 (5-15) BUN 26 H (7-18) mg/dL Creatinine 1.5 H (0.7-1.3) mg/dL Est Cr Clr Drug Dosing 41.23 mL/min Estimated GFR (MDRD) 45 (>60) mL/min BUN/Creatinine Ratio 17.3 (14-18) Glucose 303 H (70-99) mg/dL POC Glucose (70-99) mg/dL Hemoglobin A1c ( - 5.6) % Calcium 8.4 L (8.5-10.1) mg/dL Magnesium 1.8 (1.8-2.4) mg/dL Total Bilirubin 0.5 (0.2-1.0) mg/dL AST 18 (15-37) U/L ALT 21 (16-63) U/L Alkaline Phosphatase 83 (46-116) U/L C-Reactive Protein 20.4 H* (<1.0) mg/dL NT-Pro-B Natriuret Pep (0-450) pg/mL Total Protein 6.9 (6.4-8.2) g/dl Albumin 2.7 L (3.4-5.0) g/dl Globulin 4.2 gm/dL Albumin/Globulin Ratio 0.6 L (1-2) 07/23/ Range/Units 16:30 WBC (4.23-9.07) K/mm3 RBC (4.63-6.08) M/mm3 Hgb (13.7-17.5) gm/dl Hct (40.1-51.0) % MCV (79.0-92.2) fl MCH (25.7-32.2) pg MCHC (32.2-35.5) g/dl RDW Std Deviation (35.1-43.9) fL Plt Count (163-337) K/mm3 MPV (9.4-12.3) fl Neut % (Auto) (34.0-67.9) % Lymph % (Auto) (21.8-53.1) % [place] % (Auto) (5.3-12.2) % Eos % (Auto) (0.8-7.0) Baso % (Auto) (0.1-1.2) % Neut # (Auto) (1.78-5.38) K/mm3 Lymph # (Auto) (1.32-3.57) K/mm3 [place] # (Auto) (0.30-0.82) K/mm3 Eos # (Auto) (0.04-0.54) K/mm3 Baso # (Auto) (0.01-0.08) K/mm3 PT (9.7-12.0) SECONDS INR APTT (21.7-31.4) SECONDS Sodium (136-145) mEq/L Potassium (3.5-5.1) mEq/L Chloride (98-107) mEq/L Carbon Dioxide (21-32) mEq/L Anion Gap (5-15) BUN (7-18) mg/dL Creatinine (0.7-1.3) mg/dL Est Cr Clr Drug Dosing mL/min Estimated GFR (MDRD) (>60) mL/min BUN/Creatinine Ratio (14-18) Glucose (70-99) mg/dL POC Glucose 154 H (70-99) mg/dL Hemoglobin A1c ( - 5.6) % Calcium (8.5-10.1) mg/dL Magnesium (1.8-2.4) mg/dL Total Bilirubin (0.2-1.0) mg/dL AST (15-37) U/L ALT (16-63) U/L Alkaline Phosphatase (46-116) U/L C-Reactive Protein (<1.0) mg/dL NT-Pro-B Natriuret Pep (0-450) pg/mL Total Protein (6.4-8.2) g/dl Albumin (3.4-5.0) g/dl Globulin gm/dL Albumin/Globulin Ratio (1-2) Result Diagrams: 07/23/21 10:11 07/23/21 10:11 Sepsis Event Note - Focused Exam Vital Signs: Vital Signs Pulse Pulse Resp BP BP Pulse Ox 07/23/21 14:59 73 16 136/72 97 07/23/21 09:21 79 16 106/72 97 Orders Last 24hrs: Active Orders 24 hr Category Date Time Status Admission Status [Patient Status] [ADT] Routine ADT 07/23/21 13:03 Active Blood Glucose Check, Bedside [RC] QIDACANDBED Care 07/23/21 15:38 Active Communication Order [RC] ASDIRECTED Care 07/23/21 16:12 Active Elevate Extremity [RC] BID Care 07/23/21 15:41 Active Height and Weight [RC] DAILY Care 07/23/21 15:38 Active Intake and Output [RC] DAILY Care 07/23/21 15:39 Active Oxygen Therapy [RC] ASDIRECTED Care 07/23/21 15:39 Active Peripheral IV Care [RC] Q4HR Care 07/23/21 09:45 Active Pulse Oximetry [RC] PRN Care 07/23/21 15:39 Active RT Post Treatment Assessment [RC] Click to Edit Care 07/23/21 16:04 Active RT Pre-Treatment Assessment [RC] Click to Edit Care 07/23/21 16:04 Active Up With Assistance [RC] ASDIRECTED Care 07/23/21 15:39 Active Up to Chair [RC] ASDIRECTED Care 07/23/21 15:38 Active Vital Signs [RC] Q4H Care 07/23/21 15:39 Active Consult to Physical Therapy [PT Evaluation and Cons 07/23/21 13:24 Active Treatment] [CONS] Routine PT Evaluation and Treatment [CONS] Routine Cons 07/23/21 15:40 Active Consistent Carbohydrate Diet [DIET] Diet 07/23/21 Dinner Active BLOOD CULTURE [MREF] Stat Lab 07/23/21 10:11 Received BLOOD CULTURE [MREF] Stat Lab 07/23/21 10:21 Received C-REACTIVE PROTEIN [CHEM] AM Lab 07/25/21 05:11 Ordered C-REACTIVE PROTEIN [CHEM] AM Lab 07/26/21 05:11 Ordered C-REACTIVE PROTEIN [CHEM] AM Lab 07/27/21 05:11 Ordered C-REACTIVE PROTEIN [CHEM] AM Lab 07/24/21 05:11 Ordered CBC WITH AUTO DIFF [HEME] AM Lab 07/25/21 05:11 Ordered CBC WITH AUTO DIFF [HEME] AM Lab 07/26/21 05:11 Ordered CBC WITH AUTO DIFF [HEME] AM Lab 07/27/21 05:11 Ordered CBC WITH AUTO DIFF [HEME] AM Lab 07/24/21 05:11 Ordered COMPREHENSIVE METABOLIC PN,CMP [CHEM] AM Lab 07/25/21 05:11 Ordered COMPREHENSIVE METABOLIC PN,CMP [CHEM] AM Lab 07/26/21 05:11 Ordered COMPREHENSIVE METABOLIC PN,CMP [CHEM] AM Lab 07/27/21 05:11 Ordered COMPREHENSIVE METABOLIC PN,CMP [CHEM] AM Lab 07/24/21 05:11 Ordered CORONAVIRUS COVID-19 RIN [MOLEC] Stat Lab 07/23/21 16:00 Received CREATININE,URINE RAND [URCHEM] Routine Lab 07/23/21 16:16 Ordered CULTURE, ANAEROBE & AEROBE [MREF] Stat Lab 07/23/21 10:10 Received MAGNESIUM [CHEM] AM Lab 07/25/21 05:11 Ordered MAGNESIUM [CHEM] AM Lab 07/26/21 05:11 Ordered MAGNESIUM [CHEM] AM Lab 07/27/21 05:11 Ordered MAGNESIUM [CHEM] AM Lab 07/24/21 05:11 Ordered PROCALCITONIN [REF] Routine Lab 07/23/21 10:11 Received PROTEIN,URINE [URIN] Routine Lab 07/23/21 16:16 Ordered SODIUM,URINE RANDOM [URCHEM] Routine Lab 07/23/21 16:16 Ordered VANCOMYCIN TROUGH [CHEM] Timed Lab 07/25/21 15:00 Ordered Acetaminophen [TylenoL] Med 07/23/21 15:38 Active 650 mg PO Q4H PRN Albuterol [Proventil HFA] Med 07/23/21 16:03 Active See Dose Instructions INH Q2H PRN Aspirin Med 07/24/21 09:00 Active 81 mg PO DAILY Calcium Carbonate/Vitamin D3 [Calcium Carbonate/Vitamin Med 07/24/21 09:00 Active D 600 MG-200 Unit] 1 tab PO DAILY Cefepime [Maxipime] 2 gm Med 07/23/21 15:45 Active Sodium Chloride 0.9% [Normal Saline] 50 ml IV Q8H Cholecalciferol (Vitamin D3) [Vitamin D3] Med 07/24/21 09:00 Active 5,000 unit PO DAILY Cyanocobalamin (Vitamin B12) [Vitamin B12] Med 07/24/21 09:00 Active 1,000 mcg PO DAILY Docusate Sodium/Sennosides [Senna Plus] Med 07/23/21 15:38 Active 1 tab PO BID PRN Enoxaparin [Lovenox] Med 07/23/21 16:00 Active 40 mg SUBCUT Q24H Folic Acid Med 07/24/21 09:00 Active 1 mg PO DAILY Gabapentin [Neurontin] Med 07/23/21 21:00 Active 600 mg PO TID Insulin Glargine,Hum.Rec.Anlog [Semglee Pen] Med 07/23/21 21:00 Active 20 unit SUBCUT BEDTIME Insulin Lispro [HumaLOG] Med 07/23/21 17:30 Active See Protocol SUBCUT WITHMEALSANDBED Magnesium Oxide Med 07/24/21 09:00 Active 400 mg PO DAILY Metoprolol Succinate [Toprol XL] Med 07/24/21 09:00 Active 50 mg PO DAILY Morphine Med 07/23/21 15:38 Active 2 mg IVPUSH Q2H PRN Nicotine [Habitrol] Med 07/23/21 15:45 Active 14 mg TRDERM DAILY Ondansetron [Zofran] Med 07/23/21 15:38 Active 4 mg IV Q6H PRN Pantoprazole [ProTONIX] Med 07/24/21 07:00 Active 40 mg PO DAILY@0700 Pharmacy to Dose - Vancomycin Med 07/23/21 15:45 Pending 1 dose .XX ASDIRECTED Remove Patch Med 07/24/21 09:00 Active 1 ea TRDERM DAILY Saccharomyces Boulardii [Florastor] Med 07/24/21 09:00 Active 250 mg PO DAILY Simvastatin [Zocor] Med 07/24/21 09:00 Active 40 mg PO DAILY Sodium Chloride 0.9% [Normal Saline] 1,000 ml Med 07/23/21 16:15 Active IV ASDIRECTED Sodium Chloride 0.9% [Saline Flush] Med 07/23/21 09:45 Active 10 ml FLUSH ASDIRECTED PRN Vancomycin 1 gm Med 07/24/21 16:00 Active Vancomycin 250 mg Sodium Chloride 0.9% [Normal Saline] 250 ml IV Q24H Vancomycin 2 gm Med 07/23/21 16:00 Active Sodium Chloride 0.9% [Normal Saline] 500 ml IV ONETIME oxyCODONE Med 07/23/21 15:38 Active 5 mg PO Q4H PRN Blood Culture x2 Reflex Set [OM.PC] Stat Oth 07/23/21 09:44 Ordered Peripheral IV Insertion Adult [OM.PC] Stat Oth 07/23/21 09:44 Ordered Code Status [Resuscitation Status] Routine Resus Stat 07/23/21 16:13 Ordered Medication Orders Acetaminophen (Acetaminophen 325 Mg Tab) 650 mg PO Q4H PRN PRN Reason: Pain (Mild 1-3)/fever Albuterol (Albuterol 6.7 Gm Inhaler) 0 gm INH Q2H PRN PRN Reason: SOB/Wheezing Aspirin (Aspirin 81 Mg Tab.Chew) 81 mg PO DAILY [facility] Calcium Carbonate (Calcium Carbonate/Vitamin D3 600 Mg-200 Units Tab) 1 tab PO DAILY [facility] Cholecalciferol (Cholecalciferol (Vitamin D3) 5,000 Unit Cap) 5,000 unit PO DAILY [facility] Cyanocobalamin (Cyanocobalamin (Vitamin B12) 1,000 Mcg Tab) 1,000 mcg PO DAILY [facility] Enoxaparin Sodium (Enoxaparin 40 Mg/0.4 Ml Syringe) 40 mg SUBCUT Q24H CRISTELA Last Admin: 07/23/21 16:27 Dose: 40 mg Documented by: [id number] Folic Acid (Folic Acid 1 Mg Tab) 1 mg PO DAILY [facility] Gabapentin (Gabapentin 300 Mg Cap) 600 mg PO TID [facility] Cefepime HCl 2 gm/ Sodium (Chloride) 50 mls @ 100 mls/hr IV Q8H CRISTELA Vancomycin HCl 2 gm/ Sodium (Chloride) 500 mls @ 250 mls/hr IV ONETIME ONE Stop: 07/23/21 17:59 Last Admin: 07/23/21 16:27 Dose: 250 mls/hr Documented by: BRENDAN Vancomycin HCl 1 gm/Vancomycin HCl 250 mg/ Sodium Chloride 250 mls @ 166.667 mls/hr IV Q24H [facility] Sodium Chloride (Normal Saline) 1,000 mls @ 75 mls/hr IV ASDIRECTED [facility] Stop: 07/24/21 05:34 Insulin Glargine (Insulin Glargine,Hum.Rec.Anlog 100 Unit/Ml 3 Ml Pen) 20 unit SUBCUT BEDTIME [facility] Insulin Human Lispro (Insulin Lispro 100 Unit/Ml 3 Ml Kwikpen) 0 unit SUBCUT WITHMEALSANDBED [facility]; Protocol Magnesium Oxide (Magnesium Oxide 400 Mg Tab) 400 mg PO DAILY [facility] Metoprolol Succinate (Metoprolol Succinate 50 Mg Tab.Er) 50 mg PO DAILY [facility] Miscellaneous Information (Remove And Replace Nicotine Patch) 1 ea TRDERM DAILY [facility] Morphine Sulfate (Morphine 2 Mg/Ml Syringe) 2 mg IVPUSH Q2H PRN PRN Reason: Pain (severe 7-10) Stop: 07/24/21 15:40 Nicotine (Nicotine 14 Mg/24 Hr Patch) 14 mg TRDERM DAILY [facility] Last Admin: 07/23/21 16:27 Dose: 14 mg Documented by: BRENDAN Ondansetron HCl (Ondansetron 4 Mg/2 Ml Sdv) 4 mg IV Q6H PRN PRN Reason: Nausea/Vomiting Oxycodone HCl (Oxycodone 5 Mg Tab) 5 mg PO Q4H PRN PRN Reason: Pain (moderate 4-6) Pantoprazole Sodium (Pantoprazole 40 Mg Tab.Cr) 40 mg PO DAILY@0700 [facility] Saccharomyces Boulardii (Saccharomyces Boulardii (Probiotic) 250 Mg Cap) 250 mg PO DAILY [facility] Senna/Docusate Sodium (Docusate Sodium/Sennosides 50-8.6 Mg Tab) 1 tab PO BID PRN PRN Reason: Constipation Simvastatin (Simvastatin 40 Mg Tab) 40 mg PO DAILY [facility] Sodium Chloride (Sodium Chloride 0.9% 10 Ml Syringe) 10 ml FLUSH ASDIRECTED PRN PRN Reason: Keep Vein Open Last Admin: 07/23/21 10:14 Dose: 10 ml Documented by: SAVAGE Vancomycin HCl (Pharmacy To Dose - Vancomycin) 1 dose .XX ASDIRECTED CRISTELA - Free Text/Narrative Note: I have seen and examined the patient independently of Lon Mueller PA-C, and have discussed the case with him. I have reviewed the orders and agree with the plan of care for this patient as outlined by him. Please see orders.
[2021-07-23] MEDS ORDERED: Vancomycin 2 GM in Sodium Chloride 0.9% 500 ML IV ONE (16:00)
[2021-07-23] MEDS ORDERED: Albuterol 6.7 GM Inhaler INH PRN (16:03)
[2021-07-23] MEDS ORDERED: Sodium Chloride 0.9% 1,000 ML IV SCH (16:15)
[2021-07-23] MEDS: Nicotine 14 MG/24 Hr Patch TRDERM SCH (16:27)
[2021-07-23] MEDS: Enoxaparin 40 MG/0.4 ML Syringe SUBCUT SCH (16:27)
[2021-07-23] MEDS: Insulin Lispro 100 Unit/ML 3 ML KwikPen SUBCUT SCH ×2 (17:08→20:17)
[2021-07-23] MEDS: Cefepime 2 GM in Sodium Chloride 0.9% 50 ML IV SCH ×2 (19:15→23:14)
[2021-07-23] MEDS: Insulin Glargine,Hum.Rec.Anlog 100 UNIT/ML 3 ML Pen SUBCUT SCH (20:16)
[2021-07-23] MEDS: Gabapentin 300 MG Cap PO SCH (20:17)
[2021-07-23] MEDS ORDERED: Non-Formulary Medication 1 Each (Metformin 500 MG Tab.Er) PO SCH (21:00)
[2021-07-24] MEDS: Pantoprazole 40 MG Tab.CR PO SCH (06:44)
[2021-07-24] MEDS: Cefepime 2 GM in Sodium Chloride 0.9% 50 ML IV SCH ×3 (06:45→23:36)
--- NOTE | 2021-07-24 07:07 | PCM.PN ---
- General Info Date of Service: 07/24/21 Admission Dx/Problem (Free Text): Admission Diagnosis/Problem Admission Diagnosis/Problem Cellulitis and abscess of left lower extremity Subjective Update: The patient is a 81-year-old gentleman who was admitted yesterday secondary to what appears to be a diabetic foot ulcer. The patient had been using outpatient antibiotics and this failed and he was admitted for IV antibiotics. Today the patient says that he is doing better. He has no pain. The patient says that his swelling and redness looks to be improved. The patient has been tolerating his diet. He has no other complaints. Functional Status: Reports: Pain Controlled, Tolerating Diet. Denies: New Symptoms - Review of Systems General: Reports: No Symptoms HEENT: Reports: No Symptoms Pulmonary: Reports: No Symptoms Cardiovascular: Reports: No Symptoms Gastrointestinal: Reports: No Symptoms Genitourinary: Reports: No Symptoms Musculoskeletal: Reports: No Symptoms Skin: Reports: No Symptoms Neurological: Reports: No Symptoms Psychiatric: Reports: No Symptoms - Patient Data Vitals - Most Recent: Last Vital Signs Temp 36.8 C 07/24/21 03:00 Pulse 82 07/24/21 03:00 Resp 14 07/24/21 03:00 BP 131/69 07/24/21 03:00 Pulse Ox 91 L 07/24/21 03:00 Weight - Most Recent: 86.046 kg I&O - Last 24 Hours: Intake & Output 07/23/21 07/24/21 07/24/21 22:59 06:59 14:59 Intake Total 1326 Balance 1326 Lab Results Last 24 Hours: Laboratory Results - last 24 hr 07/23/21 07/23/21 07/23/21 Range/Units 09:44 09:44 09:56 WBC (4.23-9.07) K/mm3 RBC (4.63-6.08) M/mm3 Hgb (13.7-17.5) gm/dl Hct (40.1-51.0) % MCV (79.0-92.2) fl MCH (25.7-32.2) pg MCHC (32.2-35.5) g/dl RDW Std Deviation (35.1-43.9) fL Plt Count (163-337) K/mm3 MPV (9.4-12.3) fl Neut % (Auto) (34.0-67.9) % Lymph % (Auto) (21.8-53.1) % Dane % (Auto) (5.3-12.2) % Eos % (Auto) (0.8-7.0) Baso % (Auto) (0.1-1.2) % Neut # (Auto) (1.78-5.38) K/mm3 Lymph # (Auto) (1.32-3.57) K/mm3 Dane # (Auto) (0.30-0.82) K/mm3 Eos # (Auto) (0.04-0.54) K/mm3 Baso # (Auto) (0.01-0.08) K/mm3 PT (9.7-12.0) SECONDS INR APTT (21.7-31.4) SECONDS Sodium (136-145) mEq/L Potassium (3.5-5.1) mEq/L Chloride (98-107) mEq/L Carbon Dioxide (21-32) mEq/L Anion Gap (5-15) BUN (7-18) mg/dL Creatinine (0.7-1.3) mg/dL Est Cr Clr Drug Dosing mL/min Estimated GFR (MDRD) (>60) mL/min BUN/Creatinine Ratio (14-18) Glucose (70-99) mg/dL POC Glucose 297 H (70-99) mg/dL Hemoglobin A1c 7.5 H ( - 5.6) % Calcium (8.5-10.1) mg/dL Magnesium (1.8-2.4) mg/dL Total Bilirubin (0.2-1.0) mg/dL AST (15-37) U/L ALT (16-63) U/L Alkaline Phosphatase (46-116) U/L C-Reactive Protein (<1.0) mg/dL NT-Pro-B Natriuret Pep 2206 H (0-450) pg/mL Total Protein (6.4-8.2) g/dl Albumin (3.4-5.0) g/dl Globulin gm/dL Albumin/Globulin Ratio (1-2) Urine Protein (Negative) Ur Random Creatinine (30.0-125.0) mg/dL Ur Random Sodium (40-220) mEq/L SARS-CoV-2 RNA (RIN) (NEGATIVE) 07/23/21 07/23/21 07/23/21 Range/Units 10:11 10:11 10:11 WBC 15.34 H (4.23-9.07) K/mm3 RBC 4.26 L (4.63-6.08) M/mm3 Hgb 12.8 L D (13.7-17.5) gm/dl Hct 39.5 L (40.1-51.0) % MCV 92.7 H (79.0-92.2) fl MCH 30.0 (25.7-32.2) pg MCHC 32.4 (32.2-35.5) g/dl RDW Std Deviation 46.7 H (35.1-43.9) fL Plt Count 283 (163-337) K/mm3 MPV 10.0 (9.4-12.3) fl Neut % (Auto) 83.3 H (34.0-67.9) % Lymph % (Auto) 7.3 L (21.8-53.1) % Dane % (Auto) 8.5 (5.3-12.2) % Eos % (Auto) 0.4 L (0.8-7.0) Baso % (Auto) 0.2 (0.1-1.2) % Neut # (Auto) 12.78 H (1.78-5.38) K/mm3 Lymph # (Auto) 1.12 L (1.32-3.57) K/mm3 Dane # (Auto) 1.30 H (0.30-0.82) K/mm3 Eos # (Auto) 0.06 (0.04-0.54) K/mm3 Baso # (Auto) 0.03 (0.01-0.08) K/mm3 PT 11.1 (9.7-12.0) SECONDS INR 1.00 APTT 32.8 H (21.7-31.4) SECONDS Sodium 130 L D (136-145) mEq/L Potassium 3.8 (3.5-5.1) mEq/L Chloride 92 L (98-107) mEq/L Carbon Dioxide 28 (21-32) mEq/L Anion Gap 13.8 (5-15) BUN 26 H (7-18) mg/dL Creatinine 1.5 H (0.7-1.3) mg/dL Est Cr Clr Drug Dosing 41.23 mL/min Estimated GFR (MDRD) 45 (>60) mL/min BUN/Creatinine Ratio 17.3 (14-18) Glucose 303 H (70-99) mg/dL POC Glucose (70-99) mg/dL Hemoglobin A1c ( - 5.6) % Calcium 8.4 L (8.5-10.1) mg/dL Magnesium 1.8 (1.8-2.4) mg/dL Total Bilirubin 0.5 (0.2-1.0) mg/dL AST 18 (15-37) U/L ALT 21 (16-63) U/L Alkaline Phosphatase 83 (46-116) U/L C-Reactive Protein 20.4 H* (<1.0) mg/dL NT-Pro-B Natriuret Pep (0-450) pg/mL Total Protein 6.9 (6.4-8.2) g/dl Albumin 2.7 L (3.4-5.0) g/dl Globulin 4.2 gm/dL Albumin/Globulin Ratio 0.6 L (1-2) Urine Protein (Negative) Ur Random Creatinine (30.0-125.0) mg/dL Ur Random Sodium (40-220) mEq/L SARS-CoV-2 RNA (RIN) (NEGATIVE) 07/23/21 07/23/21 07/23/21 Range/Units 16:00 16:30 19:56 WBC (4.23-9.07) K/mm3 RBC (4.63-6.08) M/mm3 Hgb (13.7-17.5) gm/dl Hct (40.1-51.0) % MCV (79.0-92.2) fl MCH (25.7-32.2) pg MCHC (32.2-35.5) g/dl RDW Std Deviation (35.1-43.9) fL Plt Count (163-337) K/mm3 MPV (9.4-12.3) fl Neut % (Auto) (34.0-67.9) % Lymph % (Auto) (21.8-53.1) % Dane % (Auto) (5.3-12.2) % Eos % (Auto) (0.8-7.0) Baso % (Auto) (0.1-1.2) % Neut # (Auto) (1.78-5.38) K/mm3 Lymph # (Auto) (1.32-3.57) K/mm3 Dane # (Auto) (0.30-0.82) K/mm3 Eos # (Auto) (0.04-0.54) K/mm3 Baso # (Auto) (0.01-0.08) K/mm3 PT (9.7-12.0) SECONDS INR APTT (21.7-31.4) SECONDS Sodium (136-145) mEq/L Potassium (3.5-5.1) mEq/L Chloride (98-107) mEq/L Carbon Dioxide (21-32) mEq/L Anion Gap (5-15) BUN (7-18) mg/dL Creatinine (0.7-1.3) mg/dL Est Cr Clr Drug Dosing mL/min Estimated GFR (MDRD) (>60) mL/min BUN/Creatinine Ratio (14-18) Glucose (70-99) mg/dL POC Glucose 154 H (70-99) mg/dL Hemoglobin A1c ( - 5.6) % Calcium (8.5-10.1) mg/dL Magnesium (1.8-2.4) mg/dL Total Bilirubin (0.2-1.0) mg/dL AST (15-37) U/L ALT (16-63) U/L Alkaline Phosphatase (46-116) U/L C-Reactive Protein (<1.0) mg/dL NT-Pro-B Natriuret Pep (0-450) pg/mL Total Protein (6.4-8.2) g/dl Albumin (3.4-5.0) g/dl Globulin gm/dL Albumin/Globulin Ratio (1-2) Urine Protein 1+ H (Negative) Ur Random Creatinine (30.0-125.0) mg/dL Ur Random Sodium (40-220) mEq/L SARS-CoV-2 RNA (RIN) Negative (NEGATIVE) 07/23/21 07/23/21 07/24/21 Range/Units 19:56 20:14 05:18 WBC (4.23-9.07) K/mm3 RBC (4.63-6.08) M/mm3 Hgb (13.7-17.5) gm/dl Hct (40.1-51.0) % MCV (79.0-92.2) fl MCH (25.7-32.2) pg MCHC (32.2-35.5) g/dl RDW Std Deviation (35.1-43.9) fL Plt Count (163-337) K/mm3 MPV (9.4-12.3) fl Neut % (Auto) (34.0-67.9) % Lymph % (Auto) (21.8-53.1) % Dane % (Auto) (5.3-12.2) % Eos % (Auto) (0.8-7.0) Baso % (Auto) (0.1-1.2) % Neut # (Auto) (1.78-5.38) K/mm3 Lymph # (Auto) (1.32-3.57) K/mm3 Dane # (Auto) (0.30-0.82) K/mm3 Eos # (Auto) (0.04-0.54) K/mm3 Baso # (Auto) (0.01-0.08) K/mm3 PT (9.7-12.0) SECONDS INR APTT (21.7-31.4) SECONDS Sodium (136-145) mEq/L Potassium (3.5-5.1) mEq/L Chloride (98-107) mEq/L Carbon Dioxide (21-32) mEq/L Anion Gap (5-15) BUN (7-18) mg/dL Creatinine (0.7-1.3) mg/dL Est Cr Clr Drug Dosing mL/min Estimated GFR (MDRD) (>60) mL/min BUN/Creatinine Ratio (14-18) Glucose (70-99) mg/dL POC Glucose 210 H 73 (70-99) mg/dL Hemoglobin A1c ( - 5.6) % Calcium (8.5-10.1) mg/dL Magnesium (1.8-2.4) mg/dL Total Bilirubin (0.2-1.0) mg/dL AST (15-37) U/L ALT (16-63) U/L Alkaline Phosphatase (46-116) U/L C-Reactive Protein (<1.0) mg/dL NT-Pro-B Natriuret Pep (0-450) pg/mL Total Protein (6.4-8.2) g/dl Albumin (3.4-5.0) g/dl Globulin gm/dL Albumin/Globulin Ratio (1-2) Urine Protein (Negative) Ur Random Creatinine 132.9 H (30.0-125.0) mg/dL Ur Random Sodium 40 (40-220) mEq/L SARS-CoV-2 RNA (RIN) (NEGATIVE) 07/24/21 Range/Units 05:25 WBC 12.59 H (4.23-9.07) K/mm3 RBC 4.51 L (4.63-6.08) M/mm3 Hgb 13.4 L (13.7-17.5) gm/dl Hct 41.5 (40.1-51.0) % MCV 92.0 (79.0-92.2) fl MCH 29.7 (25.7-32.2) pg MCHC 32.3 (32.2-35.5) g/dl RDW Std Deviation 46.1 H (35.1-43.9) fL Plt Count 361 H D (163-337) K/mm3 MPV 10.0 (9.4-12.3) fl Neut % (Auto) 76.8 H (34.0-67.9) % Lymph % (Auto) 11.5 L (21.8-53.1) % Dane % (Auto) 8.8 (5.3-12.2) % Eos % (Auto) 2.2 (0.8-7.0) Baso % (Auto) 0.2 (0.1-1.2) % Neut # (Auto) 9.67 H (1.78-5.38) K/mm3 Lymph # (Auto) 1.45 (1.32-3.57) K/mm3 Dane # (Auto) 1.11 H (0.30-0.82) K/mm3 Eos # (Auto) 0.28 (0.04-0.54) K/mm3 Baso # (Auto) 0.02 (0.01-0.08) K/mm3 PT (9.7-12.0) SECONDS INR APTT (21.7-31.4) SECONDS Sodium (136-145) mEq/L Potassium (3.5-5.1) mEq/L Chloride (98-107) mEq/L Carbon Dioxide (21-32) mEq/L Anion Gap (5-15) BUN (7-18) mg/dL Creatinine (0.7-1.3) mg/dL Est Cr Clr Drug Dosing mL/min Estimated GFR (MDRD) (>60) mL/min BUN/Creatinine Ratio (14-18) Glucose (70-99) mg/dL POC Glucose (70-99) mg/dL Hemoglobin A1c ( - 5.6) % Calcium (8.5-10.1) mg/dL Magnesium (1.8-2.4) mg/dL Total Bilirubin (0.2-1.0) mg/dL AST (15-37) U/L ALT (16-63) U/L Alkaline Phosphatase (46-116) U/L C-Reactive Protein (<1.0) mg/dL NT-Pro-B Natriuret Pep (0-450) pg/mL Total Protein (6.4-8.2) g/dl Albumin (3.4-5.0) g/dl Globulin gm/dL Albumin/Globulin Ratio (1-2) Urine Protein (Negative) Ur Random Creatinine (30.0-125.0) mg/dL Ur Random Sodium (40-220) mEq/L SARS-CoV-2 RNA (RIN) (NEGATIVE) Med Orders - Current: Current Medications Acetaminophen (Acetaminophen 325 Mg Tab) 650 mg PO Q4H PRN PRN Reason: Pain (Mild 1-3)/fever Albuterol (Albuterol 6.7 Gm Inhaler) 0 gm INH Q2H PRN PRN Reason: SOB/Wheezing Aspirin (Aspirin 81 Mg Tab.Chew) 81 mg PO DAILY [facility] Calcium Carbonate (Calcium Carbonate/Vitamin D3 600 Mg-200 Units Tab) 1 tab PO DAILY [facility] Cholecalciferol (Cholecalciferol (Vitamin D3) 5,000 Unit Cap) 5,000 unit PO DAILY [facility] Cyanocobalamin (Cyanocobalamin (Vitamin B12) 1,000 Mcg Tab) 1,000 mcg PO DAILY [facility] Enoxaparin Sodium (Enoxaparin 40 Mg/0.4 Ml Syringe) 40 mg SUBCUT Q24H [facility] Last Admin: 07/23/21 16:27 Dose: 40 mg Documented by: Folic Acid (Folic Acid 1 Mg Tab) 1 mg PO DAILY [facility] Gabapentin (Gabapentin 300 Mg Cap) 600 mg PO TID [facility]STEL[facility] Last Admin: 12/30/21 20:17 Dose: 600 mg Documented by: Cefepime HCl 2 gm/ Sodium (Chloride) 50 mls @ 100 mls/hr IV Q8H [facility] Last Admin: 07/24/21 06:45 Dose: 100 mls/hr Documented by: Vancomycin HCl 1 gm/Vancomycin HCl 250 mg/ Sodium Chloride 250 mls @ 166.667 mls/hr IV Q24H [facility] Insulin Glargine (Insulin Glargine,Hum.Rec.Anlog 100 Unit/Ml 3 Ml Pen) 20 unit SUBCUT BEDTIME [facility] Last Admin: 07/23/21 20:16 Dose: 20 units Documented by: Insulin Human Lispro (Insulin Lispro 100 Unit/Ml 3 Ml Kwikpen) 0 unit SUBCUT WITHMEALSANDBED [facility]; Protocol Last Admin: 07/23/21 20:17 Dose: 4 units Documented by: Magnesium Oxide (Magnesium Oxide 400 Mg Tab) 400 mg PO DAILY [facility] Metoprolol Succinate (Metoprolol Succinate 50 Mg Tab.Er) 50 mg PO DAILY [facility] Miscellaneous Information (Remove And Replace Nicotine Patch) 1 ea TRDERM DAILY [facility] Morphine Sulfate (Morphine 2 Mg/Ml Syringe) 2 mg IVPUSH Q2H PRN PRN Reason: Pain (severe 7-10) Stop: 07/24/21 15:40 Nicotine (Nicotine 14 Mg/24 Hr Patch) 14 mg TRDERM DAILY [facility] Last Admin: 07/23/21 16:27 Dose: 14 mg Documented by: Ondansetron HCl (Ondansetron 4 Mg/2 Ml Sdv) 4 mg IV Q6H PRN PRN Reason: Nausea/Vomiting Oxycodone HCl (Oxycodone 5 Mg Tab) 5 mg PO Q4H PRN PRN Reason: Pain (moderate 4-6) Pantoprazole Sodium (Pantoprazole 40 Mg Tab.Cr) 40 mg PO DAILY@0700 [facility] Last Admin: 07/24/21 06:44 Dose: 40 mg Documented by: Saccharomyces Boulardii (Saccharomyces Boulardii (Probiotic) 250 Mg Cap) 250 mg PO DAILY [facility] Senna/Docusate Sodium (Docusate Sodium/Sennosides 50-8.6 Mg Tab) 1 tab PO BID PRN PRN Reason: Constipation Simvastatin (Simvastatin 40 Mg Tab) 40 mg PO DAILY [facility] Sodium Chloride (Sodium Chloride 0.9% 10 Ml Syringe) 10 ml FLUSH ASDIRECTED PRN PRN Reason: Keep Vein Open Last Admin: 07/23/21 10:14 Dose: 10 ml Documented by: Vancomycin HCl (Pharmacy To Dose - Vancomycin) 1 dose .XX ASDIRECTED [facility]ELA Discontinued Medications Linezolid 600 mg/ Premix 300 mls @ 300 mls/hr IV ONETIME ONE Stop: 07/23/21 10:44 Last Admin: 07/23/21 10:13 Dose: 300 mls/hr Documented by: Vancomycin HCl 2 gm/ Sodium (Chloride) 500 mls @ 250 mls/hr IV ONETIME ONE Stop: 07/23/21 17:59 Last Admin: 07/23/21 16:27 Dose: 250 mls/hr Documented by: Sodium Chloride (Normal Saline) 1,000 mls @ 75 mls/hr IV ASDIRECTED [facility]RISTELA Stop: 07/24/21 05:34 Last Admin: 07/23/21 19:15 Dose: 75 mls/hr Documented by: Non-Formulary Medication (Metformin) 1,000 mg PO BEDTIME [facility] Non-Formulary Medication (Metformin) 1,500 mg PO DAILY [facility] - Exam Quality Assessment: DVT Prophylaxis. No: Supplemental Oxygen General: Alert, Oriented, Cooperative, No Acute Distress HEENT: Pupils Equal, Pupils Reactive, EOMI, Mucous Membr. Moist/[place] Neck: Supple, Trachea Midline Lungs: Clear to Auscultation, Normal Respiratory Effort Cardiovascular: Regular Rate, Regular Rhythm, No Murmurs GI/Abdominal Exam: Normal Bowel Sounds, Soft, No Distention (Male) Exam: Deferred Back Exam: Normal Inspection, Full Range of Motion Extremities: Normal Inspection, Normal Range of Motion, No Pedal Edema Skin: Warm, Dry, Other (Cellulitis left lower extremity markedly improved less edema less erythema.) Wound/Incisions: Dressing Dry and Intact Neurological: No New Focal Deficit Psy/Mental Status: Alert, Normal Affect, Normal Mood - Patient Data Lab Results Last 24 hrs: Laboratory Results - last 24 hr 07/23/21 07/23/21 07/23/21 Range/Units 09:44 09:44 09:56 WBC (4.23-9.07) K/mm3 RBC (4.63-6.08) M/mm3 Hgb (13.7-17.5) gm/dl Hct (40.1-51.0) % MCV (79.0-92.2) fl MCH (25.7-32.2) pg MCHC (32.2-35.5) g/dl RDW Std Deviation (35.1-43.9) fL Plt Count (163-337) K/mm3 MPV (9.4-12.3) fl Neut % (Auto) (34.0-67.9) % Lymph % (Auto) (21.8-53.1) % Dane % (Auto) (5.3-12.2) % Eos % (Auto) (0.8-7.0) Baso % (Auto) (0.1-1.2) % Neut # (Auto) (1.78-5.38) K/mm3 Lymph # (Auto) (1.32-3.57) K/mm3 Dane # (Auto) (0.30-0.82) K/mm3 Eos # (Auto) (0.04-0.54) K/mm3 Baso # (Auto) (0.01-0.08) K/mm3 PT (9.7-12.0) SECONDS INR APTT (21.7-31.4) SECONDS Sodium (136-145) mEq/L Potassium (3.5-5.1) mEq/L Chloride (98-107) mEq/L Carbon Dioxide (21-32) mEq/L Anion Gap (5-15) BUN (7-18) mg/dL Creatinine (0.7-1.3) mg/dL Est Cr Clr Drug Dosing mL/min Estimated GFR (MDRD) (>60) mL/min BUN/Creatinine Ratio (14-18) Glucose (70-99) mg/dL POC Glucose 297 H (70-99) mg/dL Hemoglobin A1c 7.5 H ( - 5.6) % Calcium (8.5-10.1) mg/dL Magnesium (1.8-2.4) mg/dL Total Bilirubin (0.2-1.0) mg/dL AST (15-37) U/L ALT (16-63) U/L Alkaline Phosphatase (46-116) U/L C-Reactive Protein (<1.0) mg/dL NT-Pro-B Natriuret Pep 2206 H (0-450) pg/mL Total Protein (6.4-8.2) g/dl Albumin (3.4-5.0) g/dl Globulin gm/dL Albumin/Globulin Ratio (1-2) Urine Protein (Negative) Ur Random Creatinine (30.0-125.0) mg/dL Ur Random Sodium (40-220) mEq/L SARS-CoV-2 RNA (RIN) (NEGATIVE) 07/23/21 07/23/21 07/23/21 Range/Units 10:11 10:11 10:11 WBC 15.34 H (4.23-9.07) K/mm3 RBC 4.26 L (4.63-6.08) M/mm3 Hgb 12.8 L D (13.7-17.5) gm/dl Hct 39.5 L (40.1-51.0) % MCV 92.7 H (79.0-92.2) fl MCH 30.0 (25.7-32.2) pg MCHC 32.4 (32.2-35.5) g/dl RDW Std Deviation 46.7 H (35.1-43.9) fL Plt Count 283 (163-337) K/mm3 MPV 10.0 (9.4-12.3) fl Neut % (Auto) 83.3 H (34.0-67.9) % Lymph % (Auto) 7.3 L (21.8-53.1) % Dane % (Auto) 8.5 (5.3-12.2) % Eos % (Auto) 0.4 L (0.8-7.0) Baso % (Auto) 0.2 (0.1-1.2) % Neut # (Auto) 12.78 H (1.78-5.38) K/mm3 Lymph # (Auto) 1.12 L (1.32-3.57) K/mm3 Dane # (Auto) 1.30 H (0.30-0.82) K/mm3 Eos # (Auto) 0.06 (0.04-0.54) K/mm3 Baso # (Auto) 0.03 (0.01-0.08) K/mm3 PT 11.1 (9.7-12.0) SECONDS INR 1.00 APTT 32.8 H (21.7-31.4) SECONDS Sodium 130 L D (136-145) mEq/L Potassium 3.8 (3.5-5.1) mEq/L Chloride 92 L (98-107) mEq/L Carbon Dioxide 28 (21-32) mEq/L Anion Gap 13.8 (5-15) BUN 26 H (7-18) mg/dL Creatinine 1.5 H (0.7-1.3) mg/dL Est Cr Clr Drug Dosing 41.23 mL/min Estimated GFR (MDRD) 45 (>60) mL/min BUN/Creatinine Ratio 17.3 (14-18) Glucose 303 H (70-99) mg/dL POC Glucose (70-99) mg/dL Hemoglobin A1c ( - 5.6) % Calcium 8.4 L (8.5-10.1) mg/dL Magnesium 1.8 (1.8-2.4) mg/dL Total Bilirubin 0.5 (0.2-1.0) mg/dL AST 18 (15-37) U/L ALT 21 (16-63) U/L Alkaline Phosphatase 83 (46-116) U/L C-Reactive Protein 20.4 H* (<1.0) mg/dL NT-Pro-B Natriuret Pep (0-450) pg/mL Total Protein 6.9 (6.4-8.2) g/dl Albumin 2.7 L (3.4-5.0) g/dl Globulin 4.2 gm/dL Albumin/Globulin Ratio 0.6 L (1-2) Urine Protein (Negative) Ur Random Creatinine (30.0-125.0) mg/dL Ur Random Sodium (40-220) mEq/L SARS-CoV-2 RNA (RIN) (NEGATIVE) 07/23/21 07/23/21 07/23/21 Range/Units 16:00 16:30 19:56 WBC (4.23-9.07) K/mm3 RBC (4.63-6.08) M/mm3 Hgb (13.7-17.5) gm/dl Hct (40.1-51.0) % MCV (79.0-92.2) fl MCH (25.7-32.2) pg MCHC (32.2-35.5) g/dl RDW Std Deviation (35.1-43.9) fL Plt Count (163-337) K/mm3 MPV (9.4-12.3) fl Neut % (Auto) (34.0-67.9) % Lymph % (Auto) (21.8-53.1) % Dane % (Auto) (5.3-12.2) % Eos % (Auto) (0.8-7.0) Baso % (Auto) (0.1-1.2) % Neut # (Auto) (1.78-5.38) K/mm3 Lymph # (Auto) (1.32-3.57) K/mm3 Dane # (Auto) (0.30-0.82) K/mm3 Eos # (Auto) (0.04-0.54) K/mm3 Baso # (Auto) (0.01-0.08) K/mm3 PT (9.7-12.0) SECONDS INR APTT (21.7-31.4) SECONDS Sodium (136-145) mEq/L Potassium (3.5-5.1) mEq/L Chloride (98-107) mEq/L Carbon Dioxide (21-32) mEq/L Anion Gap (5-15) BUN (7-18) mg/dL Creatinine (0.7-1.3) mg/dL Est Cr Clr Drug Dosing mL/min Estimated GFR (MDRD) (>60) mL/min BUN/Creatinine Ratio (14-18) Glucose (70-99) mg/dL POC Glucose 154 H (70-99) mg/dL Hemoglobin A1c ( - 5.6) % Calcium (8.5-10.1) mg/dL Magnesium (1.8-2.4) mg/dL Total Bilirubin (0.2-1.0) mg/dL AST (15-37) U/L ALT (16-63) U/L Alkaline Phosphatase (46-116) U/L C-Reactive Protein (<1.0) mg/dL NT-Pro-B Natriuret Pep (0-450) pg/mL Total Protein (6.4-8.2) g/dl Albumin (3.4-5.0) g/dl Globulin gm/dL Albumin/Globulin Ratio (1-2) Urine Protein 1+ H (Negative) Ur Random Creatinine (30.0-125.0) mg/dL Ur Random Sodium (40-220) mEq/L SARS-CoV-2 RNA (RIN) Negative (NEGATIVE) 07/23/21 07/23/21 07/24/21 Range/Units 19:56 20:14 05:18 WBC (4.23-9.07) K/mm3 RBC (4.63-6.08) M/mm3 Hgb (13.7-17.5) gm/dl Hct (40.1-51.0) % MCV (79.0-92.2) fl MCH (25.7-32.2) pg MCHC (32.2-35.5) g/dl RDW Std Deviation (35.1-43.9) fL Plt Count (163-337) K/mm3 MPV (9.4-12.3) fl Neut % (Auto) (34.0-67.9) % Lymph % (Auto) (21.8-53.1) % Dane % (Auto) (5.3-12.2) % Eos % (Auto) (0.8-7.0) Baso % (Auto) (0.1-1.2) % Neut # (Auto) (1.78-5.38) K/mm3 Lymph # (Auto) (1.32-3.57) K/mm3 Dane # (Auto) (0.30-0.82) K/mm3 Eos # (Auto) (0.04-0.54) K/mm3 Baso # (Auto) (0.01-0.08) K/mm3 PT (9.7-12.0) SECONDS INR APTT (21.7-31.4) SECONDS Sodium (136-145) mEq/L Potassium (3.5-5.1) mEq/L Chloride (98-107) mEq/L Carbon Dioxide (21-32) mEq/L Anion Gap (5-15) BUN (7-18) mg/dL Creatinine (0.7-1.3) mg/dL Est Cr Clr Drug Dosing mL/min Estimated GFR (MDRD) (>60) mL/min BUN/Creatinine Ratio (14-18) Glucose (70-99) mg/dL POC Glucose 210 H 73 (70-99) mg/dL Hemoglobin A1c ( - 5.6) % Calcium (8.5-10.1) mg/dL Magnesium (1.8-2.4) mg/dL Total Bilirubin (0.2-1.0) mg/dL AST (15-37) U/L ALT (16-63) U/L Alkaline Phosphatase (46-116) U/L C-Reactive Protein (<1.0) mg/dL NT-Pro-B Natriuret Pep (0-450) pg/mL Total Protein (6.4-8.2) g/dl Albumin (3.4-5.0) g/dl Globulin gm/dL Albumin/Globulin Ratio (1-2) Urine Protein (Negative) Ur Random Creatinine 132.9 H (30.0-125.0) mg/dL Ur Random Sodium 40 (40-220) mEq/L SARS-CoV-2 RNA (RIN) (NEGATIVE) 07/24/21 Range/Units 05:25 WBC 12.59 H (4.23-9.07) K/mm3 RBC 4.51 L (4.63-6.08) M/mm3 Hgb 13.4 L (13.7-17.5) gm/dl Hct 41.5 (40.1-51.0) % MCV 92.0 (79.0-92.2) fl MCH 29.7 (25.7-32.2) pg MCHC 32.3 (32.2-35.5) g/dl RDW Std Deviation 46.1 H (35.1-43.9) fL Plt Count 361 H D (163-337) K/mm3 MPV 10.0 (9.4-12.3) fl Neut % (Auto) 76.8 H (34.0-67.9) % Lymph % (Auto) 11.5 L (21.8-53.1) % Dane % (Auto) 8.8 (5.3-12.2) % Eos % (Auto) 2.2 (0.8-7.0) Baso % (Auto) 0.2 (0.1-1.2) % Neut # (Auto) 9.67 H (1.78-5.38) K/mm3 Lymph # (Auto) 1.45 (1.32-3.57) K/mm3 Dane # (Auto) 1.11 H (0.30-0.82) K/mm3 Eos # (Auto) 0.28 (0.04-0.54) K/mm3 Baso # (Auto) 0.02 (0.01-0.08) K/mm3 PT (9.7-12.0) SECONDS INR APTT (21.7-31.4) SECONDS Sodium (136-145) mEq/L Potassium (3.5-5.1) mEq/L Chloride (98-107) mEq/L Carbon Dioxide (21-32) mEq/L Anion Gap (5-15) BUN (7-18) mg/dL Creatinine (0.7-1.3) mg/dL Est Cr Clr Drug Dosing mL/min Estimated GFR (MDRD) (>60) mL/min BUN/Creatinine Ratio (14-18) Glucose (70-99) mg/dL POC Glucose (70-99) mg/dL Hemoglobin A1c ( - 5.6) % Calcium (8.5-10.1) mg/dL Magnesium (1.8-2.4) mg/dL Total Bilirubin (0.2-1.0) mg/dL AST (15-37) U/L ALT (16-63) U/L Alkaline Phosphatase (46-116) U/L C-Reactive Protein (<1.0) mg/dL NT-Pro-B Natriuret Pep (0-450) pg/mL Total Protein (6.4-8.2) g/dl Albumin (3.4-5.0) g/dl Globulin gm/dL Albumin/Globulin Ratio (1-2) Urine Protein (Negative) Ur Random Creatinine (30.0-125.0) mg/dL Ur Random Sodium (40-220) mEq/L SARS-CoV-2 RNA (RIN) (NEGATIVE) Result Diagrams: 07/24/21 05:25 07/24/21 05:25 Sepsis Event Note - Evaluation Sepsis Screening Result: No Definite Risk - Focused Exam Vital Signs: Vital Signs Temp Pulse Resp BP Pulse Ox 07/24/21 03:00 36.8 C 82 14 131/69 91 L 07/23/21 23:19 37.3 C 80 14 114/61 92 L 07/23/21 20:01 36.5 C 79 20 106/76 99 - Problem List & Annotations (1) Cellulitis of foot, left SNOMED Code(s): 650654810 Code(s): L03.116 - CELLULITIS OF LEFT LOWER LIMB Status: Acute Priority: High Current Visit: Yes (2) Chronic renal insufficiency, stage III (moderate) SNOMED Code(s): 382498296 Code(s): N18.30 - CHRONIC KIDNEY DISEASE, STAGE 3 UNSPECIFIED Status: Chronic Priority: Medium Current Visit: Yes Qualifiers: Chronic kidney disease stage 3 subtype: stage 3a (GFR 45-59) Qualified Co de(s): N18.31 - Chronic kidney disease, stage 3a (3) Diabetic neuropathy SNOMED Code(s): 056674916, 789714261, 828720464 Code(s): E11.40 - TYPE 2 DIABETES MELLITUS WITH DIABETIC NEUROPATHY, UNSP Status: Chronic Priority: Medium Current Visit: Yes Qualifiers: Diabetes mellitus type: type 2 Diabetes mellitus complication detail: diabetic polyneuropathy Qualified Code(s): E11.42 - Type 2 diabetes mellitus with diabetic polyneuropathy (4) Type 2 diabetes mellitus SNOMED Code(s): 87511713 Code(s): E11.9 - TYPE 2 DIABETES MELLITUS WITHOUT COMPLICATIONS Status: Chronic Priority: High Current Visit: Yes Qualifiers: Diabetes mellitus half-way insulin use: with ad terminal makeup operator use Diabetes mellitus complication status: with neurologic complications Diabetes mellitus complication detail: with polyneuropathy Qualified Code(s): E11.42 - Type 2 diabetes mellitus with diabetic polyneuropathy; Z79.4 - ad terminal makeup operator (current) use of insulin - Problem List Review Problem List Initiated/Reviewed/Updated: Yes - My Orders Last 24 Hours: My Active Orders 07/25/21 15:00 VANCOMYCIN TROUGH [CHEM] Timed - Plan Plan:: Cellulitis of foot, left Open wound of left foot Elevated C-reactive protein (CRP) Diabetic Neuropathy * Outpatient podiatry after discharge * PT wound care * PT evaluation * Every 8 hour meropenem * Vancomycin with pharmacy to dose * Wound cultures pending * Demarcate area of inflammation to monitor improvement/worsening * Continue home gabapentin * As needed pain medications * Elevate extremities at least twice daily * Procalcitonin pending Type 2 diabetes mellitus (A1C 7.5%) * Hold home p.o. diabetic medications * Consistent carbohydrate diet * Medium intensity sliding scale insulin * Continue home long-acting insulin * Consider dietitian consult * Consider needle leader * 4 times daily before meals and bedtime blood glucose checks TREY (acute kidney injury) * IV fluids as ordered * Caution with nephrotoxic medications * Hold home lisinopril/HCTZ Hyponatremia * Hold home HCTZ * IV fluids as ordered * Recheck labs in a.m. * Check urine protein, urine creatinine, and urine sodium Elevated BNP * No history of CHF * Patient denies any respiratory symptoms * Unilateral left-sided pedal edema due to cellulitis * No orthopnea or other concerns * Will defer further work-up at this time * Consider echocardiogram if warranted COPD (chronic obstructive pulmonary disease) * No acute concerns * Albuterol MDI as needed BPH (benign prostatic hyperplasia) * No acute concerns * Not on any home medications Nicotine use * Nicotine patch as ordered Daily * Cessation counseling * Offer nicotine patches at discharge Code status: Full code PCP: Analy Suarez NP DVT prophylaxis: Lovenox Disposition: Patient mated inpatient for management of failed outpatient left lo wer extremity cellulitis. Length of stay likely 3 to 4 days pending improvement. 07/24/2021 The patient is a 81-year-old gentleman who was admitted secondary to cellulitis of his left lower lateral distal foot. He is a diabetic and does have polyneuropathy and is likely had contributed to the infection. The wound is open and draining and wound care has been maintaining dressing for him. He is currently on vancomycin with pharmacy to dose. He did receive an initial dose of Zyvox in ER. Repeat laboratory studies have been ordered. The patient is also on DVT prophylaxis with the use of Lovenox 40 mg subcutaneous daily. The patient is continue his diabetic diet as well as insulin sliding scale to help better control his blood sugars. The patient has a hemoglobin A1c of 7.5 indicating well-controlled. I have ordered an MRI to help exclude osteomyelitis which would change the course of treatment. He should be appropriate for discharge in 2 to 3 days depending upon MRI or cultures. The patient should have a follow-up outpatient appointment with podiatry upon discharge.
[2021-07-24] MEDS: Insulin Lispro 100 Unit/ML 3 ML KwikPen SUBCUT SCH ×4 (08:22→23:12)
[2021-07-24] MEDS: Cholecalciferol (Vitamin D3) 5,000 UNIT Cap PO SCH (08:23)
[2021-07-24] MEDS: Calcium Carbonate/Vitamin D3 600 MG-200 Units Tab PO SCH (08:23)
[2021-07-24] MEDS: Simvastatin 40 MG Tab PO SCH (08:25)
[2021-07-24] MEDS: Saccharomyces Boulardii (Probiotic) 250 MG Cap PO SCH (08:25)
[2021-07-24] MEDS: Metoprolol Succinate 50 MG Tab.ER PO SCH (08:26)
[2021-07-24] MEDS: Aspirin 81 MG Tab.Chew PO SCH (08:29)
[2021-07-24] MEDS: Magnesium Oxide 400 MG Tab PO SCH (08:29)
[2021-07-24] MEDS: Cyanocobalamin (Vitamin B12) 1,000 MCG Tab PO SCH (08:29)
[2021-07-24] MEDS: Gabapentin 300 MG Cap PO SCH ×3 (08:29→21:40)
[2021-07-24] MEDS: Nicotine 14 MG/24 Hr Patch TRDERM SCH (08:30)
[2021-07-24] MEDS: Folic Acid 1 MG Tab PO SCH (08:30)
[2021-07-24] MEDS: Remove AND REPLACE NICOTINE Patch TRDERM SCH (08:31)
[2021-07-24] MEDS ORDERED: Non-Formulary Medication 1 Each (Metformin 500 MG Tab.Er) PO SCH (09:00)
[2021-07-24] MEDS ORDERED: Potassium Bicarbonate/Cit Ac 10 MEQ Effervescent Tab PO ONE (09:15)
[2021-07-24] MEDS: Enoxaparin 40 MG/0.4 ML Syringe SUBCUT SCH (15:48)
[2021-07-24] MEDS: Vancomycin 1 GM, Vancomycin 250 MG in Sodium Chloride 0.9% 250 ML IV SCH (15:49)
[2021-07-24] MEDS: Insulin Glargine,Hum.Rec.Anlog 100 UNIT/ML 3 ML Pen SUBCUT SCH (21:41)
[2021-07-25] MEDS: Insulin Lispro 100 Unit/ML 3 ML KwikPen SUBCUT SCH ×3 (08:57→16:57)
[2021-07-25] MEDS: Cefepime 2 GM in Sodium Chloride 0.9% 50 ML IV SCH ×2 (09:27→17:02)
[2021-07-25] MEDS: Gabapentin 300 MG Cap PO SCH ×2 (09:43→15:01)
[2021-07-25] MEDS: Calcium Carbonate/Vitamin D3 600 MG-200 Units Tab PO SCH (09:44)
[2021-07-25] MEDS: Metoprolol Succinate 50 MG Tab.ER PO SCH (09:45)
[2021-07-25] MEDS: Saccharomyces Boulardii (Probiotic) 250 MG Cap PO SCH (09:45)
[2021-07-25] MEDS: Magnesium Oxide 400 MG Tab PO SCH (09:45)
[2021-07-25] MEDS: Cholecalciferol (Vitamin D3) 5,000 UNIT Cap PO SCH (09:47)
[2021-07-25] MEDS: Aspirin 81 MG Tab.Chew PO SCH (09:47)
[2021-07-25] MEDS: Simvastatin 40 MG Tab PO SCH (09:47)
[2021-07-25] MEDS: Cyanocobalamin (Vitamin B12) 1,000 MCG Tab PO SCH (09:48)
[2021-07-25] MEDS: Folic Acid 1 MG Tab PO SCH (09:48)
[2021-07-25] MEDS: Nicotine 14 MG/24 Hr Patch TRDERM SCH (09:48)
[2021-07-25] MEDS: Remove AND REPLACE NICOTINE Patch TRDERM SCH (09:51)
[2021-07-25] MEDS: Pantoprazole 40 MG Tab.CR PO SCH (09:58)
[2021-07-25] MEDS ORDERED: Magnesium Sulfate/Water 2 GM in Premix Bag 1 BAG IV ONE (14:01)
--- NOTE | 2021-07-25 14:02 | PCM.PN ---
- General Info Date of Service: 07/25/21 Admission Dx/Problem (Free Text): Admission Diagnosis/Problem Admission Diagnosis/Problem Cellulitis and abscess of left lower extremity Subjective Update: The patient is a 81-year-old gentleman who was admitted secondary to an infected diabetic foot ulcer. The patient had been using outpatient antibiotics and this failed and he was admitted for IV antibiotics. Patient was placed on vancomycin and cefepime. Physical therapist asked me to come in today to evaluate the wound. Lateral wound blister has been unroofed and there is significant deficit. There is still a wound on the bottom of his foot. Chevy has concerned about osteomyelitis. Patient denies any pain. Functional Status: Reports: Pain Controlled - Review of Systems General: Reports: No Symptoms HEENT: Reports: No Symptoms Pulmonary: Reports: No Symptoms Cardiovascular: Reports: No Symptoms Gastrointestinal: Reports: No Symptoms Musculoskeletal: Reports: No Symptoms - Patient Data Vitals - Most Recent: Last Vital Signs Temp 97.2 F 07/25/21 11:17 Pulse 77 07/25/21 11:17 Resp 18 07/25/21 11:17 BP 125/80 07/25/21 11:17 Pulse Ox 92 L 07/25/21 11:17 Weight - Most Recent: 184 lb 8 oz I&O - Last 24 Hours: Intake & Output 07/24/21 07/25/21 07/25/21 22:59 06:59 14:59 Intake Total 2140 550 Output Total 1900 2300 Balance 240 -1750 Lab Results Last 24 Hours: Laboratory Results - last 24 hr 07/24/21 07/24/21 07/25/21 Range/Units 16:44 21:19 05:50 WBC 8.61 (4.23-9.07) K/mm3 RBC 4.18 L (4.63-6.08) M/mm3 Hgb 12.4 L (13.7-17.5) gm/dl Hct 38.2 L (40.1-51.0) % MCV 91.4 (79.0-92.2) fl MCH 29.7 (25.7-32.2) pg MCHC 32.5 (32.2-35.5) g/dl RDW Std Deviation 45.5 H (35.1-43.9) fL Plt Count 312 (163-337) K/mm3 MPV 9.7 (9.4-12.3) fl Neut % (Auto) 64.4 (34.0-67.9) % Lymph % (Auto) 15.7 L (21.8-53.1) % Campbell % (Auto) 14.4 H (5.3-12.2) % Eos % (Auto) 4.3 (0.8-7.0) Baso % (Auto) 0.7 (0.1-1.2) % Neut # (Auto) 5.55 H (1.78-5.38) K/mm3 Lymph # (Auto) 1.35 (1.32-3.57) K/mm3 Campbell # (Auto) 1.24 H (0.30-0.82) K/mm3 Eos # (Auto) 0.37 (0.04-0.54) K/mm3 Baso # (Auto) 0.06 (0.01-0.08) K/mm3 Manual Slide Review Normal smear Sodium (136-145) mEq/L Potassium (3.5-5.1) mEq/L Chloride (98-107) mEq/L Carbon Dioxide (21-32) mEq/L Anion Gap (5-15) BUN (7-18) mg/dL Creatinine (0.7-1.3) mg/dL Est Cr Clr Drug Dosing mL/min Estimated GFR (MDRD) (>60) mL/min BUN/Creatinine Ratio (14-18) Glucose (70-99) mg/dL POC Glucose 213 H 136 H (70-99) mg/dL Calcium (8.5-10.1) mg/dL Magnesium (1.8-2.4) mg/dL Total Bilirubin (0.2-1.0) mg/dL AST (15-37) U/L ALT (16-63) U/L Alkaline Phosphatase (46-116) U/L C-Reactive Protein (<1.0) mg/dL Total Protein (6.4-8.2) g/dl Albumin (3.4-5.0) g/dl Globulin gm/dL Albumin/Globulin Ratio (1-2) 07/25/21 07/25/21 07/25/21 Range/Units 05:50 06:53 11:15 WBC (4.23-9.07) K/mm3 RBC (4.63-6.08) M/mm3 Hgb (13.7-17.5) gm/dl Hct (40.1-51.0) % MCV (79.0-92.2) fl MCH (25.7-32.2) pg MCHC (32.2-35.5) g/dl RDW Std Deviation (35.1-43.9) fL Plt Count (163-337) K/mm3 MPV (9.4-12.3) fl Neut % (Auto) (34.0-67.9) % Lymph % (Auto) (21.8-53.1) % Campbell % (Auto) (5.3-12.2) % Eos % (Auto) (0.8-7.0) Baso % (Auto) (0.1-1.2) % Neut # (Auto) (1.78-5.38) K/mm3 Lymph # (Auto) (1.32-3.57) K/mm3 Campbell # (Auto) (0.30-0.82) K/mm3 Eos # (Auto) (0.04-0.54) K/mm3 Baso # (Auto) (0.01-0.08) K/mm3 Manual Slide Review Sodium 137 (136-145) mEq/L Potassium 4.1 (3.5-5.1) mEq/L Chloride 99 (98-107) mEq/L Carbon Dioxide 30 (21-32) mEq/L Anion Gap 12.1 (5-15) BUN 20 H (7-18) mg/dL Creatinine 1.1 (0.7-1.3) mg/dL Est Cr Clr Drug Dosing 56.22 mL/min Estimated GFR (MDRD) > 60 (>60) mL/min BUN/Creatinine Ratio 18.2 H (14-18) Glucose 98 (70-99) mg/dL POC Glucose 88 222 H (70-99) mg/dL Calcium 8.6 (8.5-10.1) mg/dL Magnesium 1.6 L (1.8-2.4) mg/dL Total Bilirubin 0.3 (0.2-1.0) mg/dL AST 16 (15-37) U/L ALT 23 (16-63) U/L Alkaline Phosphatase 77 (46-116) U/L C-Reactive Protein 11.1 H* (<1.0) mg/dL Total Protein 5.8 L (6.4-8.2) g/dl Albumin 2.3 L (3.4-5.0) g/dl Globulin 3.5 gm/dL Albumin/Globulin Ratio 0.7 L (1-2) Jonah Results Last 24 Hours: Microbiology 07/23/21 10:10 Aerobic Culture - Preliminary Skin / Skin Scrapings - Foot, Right Staphylococcus Aureus Gram Stain - Final 07/23/21 10:21 Blood Culture - Preliminary Blood - Venous - Lab Draw 07/23/21 10:11 Blood Culture - Preliminary Blood - Venous Med Orders - Current: Current Medications Acetaminophen (Acetaminophen 325 Mg Tab) 650 mg PO Q4H PRN PRN Reason: Pain (Mild 1-3)/fever Last Admin: 07/25/21 10:04 Dose: 650 mg Documented by: Albuterol (Albuterol 6.7 Gm Inhaler) 0 gm INH Q2H PRN PRN Reason: SOB/Wheezing Aspirin (Aspirin 81 Mg Tab.Chew) 81 mg PO DAILY [facility] Last Admin: 07/25/21 09:47 Dose: 81 mg Documented by: Calcium Carbonate (Calcium Carbonate/Vitamin D3 600 Mg-200 Units Tab) 1 tab PO DAILY [facility] Last Admin: 07/25/21 09:44 Dose: 1 tab Documented by: Cholecalciferol (Cholecalciferol (Vitamin D3) 5,000 Unit Cap) 5,000 unit PO DAILY [facility] Last Admin: 07/25/21 09:47 Dose: 5,000 unit Documented by: Cyanocobalamin (Cyanocobalamin (Vitamin B12) 1,000 Mcg Tab) 1,000 mcg PO DAILY [facility] Last Admin: 07/25/21 09:48 Dose: 1,000 mcg Documented by: Enoxaparin Sodium (Enoxaparin 40 Mg/0.4 Ml Syringe) 40 mg SUBCUT Q24H [facility] Last Admin: 07/24/21 15:48 Dose: 40 mg Documented by: Folic Acid (Folic Acid 1 Mg Tab) 1 mg PO DAILY [facility] Last Admin: 07/25/21 09:48 Dose: 1 mg Documented by: Gabapentin (Gabapentin 300 Mg Cap) 600 mg PO TID [facility] Last Admin: 07/25/21 09:43 Dose: 600 mg Documented by: Cefepime HCl 2 gm/ Sodium (Chloride) 50 mls @ 100 mls/hr IV Q8H [facility] Last Admin: 07/25/21 09:27 Dose: 100 mls/hr Documented by: Vancomycin HCl 1 gm/Vancomycin HCl 250 mg/ Sodium Chloride 250 mls @ 166.667 mls/hr IV Q24H [facility] Last Admin: 07/24/21 15:49 Dose: 166.667 mls/hr Documented by: Insulin Glargine (Insulin Glargine,Hum.Rec.Anlog 100 Unit/Ml 3 Ml Pen) 20 unit SUBCUT BEDTIME [facility] Last Admin: 07/24/21 21:41 Dose: 20 units Documented by: Insulin Human Lispro (Insulin Lispro 100 Unit/Ml 3 Ml Kwikpen) 0 unit SUBCUT WITHMEALSANDBED [facility]; Protocol Last Admin: 07/25/21 11:44 Dose: 4 units Documented by: Magnesium Oxide (Magnesium Oxide 400 Mg Tab) 400 mg PO DAILY [facility] Last Admin: 07/25/21 09:45 Dose: 400 mg Documented by: Metoprolol Succinate (Metoprolol Succinate 50 Mg Tab.Er) 50 mg PO DAILY [facility] Last Admin: 07/25/21 09:45 Dose: 50 mg Documented by: Miscellaneous Information (Remove And Replace Nicotine Patch) 1 ea TRDERM DAILY [facility] Last Admin: 07/25/21 09:51 Dose: 1 ea Documented by: Nicotine (Nicotine 14 Mg/24 Hr Patch) 14 mg TRDERM DAILY [facility] Last Admin: 07/25/21 09:48 Dose: 14 mg Documented by: Ondansetron HCl (Ondansetron 4 Mg/2 Ml Sdv) 4 mg IV Q6H PRN PRN Reason: Nausea/Vomiting Oxycodone HCl (Oxycodone 5 Mg Tab) 5 mg PO Q4H PRN PRN Reason: Pain (moderate 4-6) Pantoprazole Sodium (Pantoprazole 40 Mg Tab.Cr) 40 mg PO DAILY@0700 [facility] Last Admin: 07/25/21 09:58 Dose: 40 mg Documented by: Saccharomyces Boulardii (Saccharomyces Boulardii (Probiotic) 250 Mg Cap) 250 mg PO DAILY [facility] Last Admin: 07/25/21 09:45 Dose: 250 mg Documented by: Senna/Docusate Sodium (Docusate Sodium/Sennosides 50-8.6 Mg Tab) 1 tab PO BID PRN PRN Reason: Constipation Simvastatin (Simvastatin 40 Mg Tab) 40 mg PO DAILY [facility] Last Admin: 07/25/21 09:47 Dose: 40 mg Documented by: Sodium Chloride (Sodium Chloride 0.9% 10 Ml Syringe) 10 ml FLUSH ASDIRECTED PRN PRN Reason: Keep Vein Open Last Admin: 07/23/21 10:14 Dose: 10 ml Documented by: Vancomycin HCl (Pharmacy To Dose - Vancomycin) 0 dose .XX ASDIRECTED PRN PRN Reason: RX TO DOSE VANCOMYCIN Discontinued Medications Linezolid 600 mg/ Premix 300 mls @ 300 mls/hr IV ONETIME ONE Stop: 07/23/21 10:44 Last Admin: 07/23/21 10:13 Dose: 300 mls/hr Documented by: Vancomycin HCl 2 gm/ Sodium (Chloride) 500 mls @ 250 mls/hr IV ONETIME ONE Stop: 07/23/21 17:59 Last Admin: 07/23/21 16:27 Dose: 250 mls/hr Documented by: Sodium Chloride (Normal Saline) 1,000 mls @ 75 mls/hr IV ASDIRECTED [facility] Stop: 07/24/21 05:34 Last Admin: 07/23/21 19:15 Dose: 75 mls/hr Documented by: Morphine Sulfate (Morphine 2 Mg/Ml Syringe) 2 mg IVPUSH Q2H PRN PRN Reason: Pain (severe 7-10) Stop: 07/24/21 15:40 Non-Formulary Medication (Metformin) 1,000 mg PO BEDTIME [facility] Non-Formulary Medication (Metformin) 1,500 mg PO DAILY [facility] Potassium Bicarbonate (Potassium Bicarbonate/Cit Ac 10 Meq Effervescent Tab) 10 meq PO ONETIME ONE Stop: 07/24/21 09:16 Last Admin: 07/24/21 09:31 Dose: 10 meq Documented by: - Exam Quality Assessment: No: Supplemental Oxygen General: Alert, Oriented HEENT: Pupils Equal, Pupils Reactive, EOMI, Mucous Membr. Moist/[place] Neck: Supple Lungs: Clear to Auscultation, Normal Respiratory Effort Cardiovascular: Regular Rate, Regular Rhythm GI/Abdominal Exam: Normal Bowel Sounds, Soft, Non-Tender, No Organomegaly, No Distention, No Abnormal Bruit, No Mass, Pelvis Stable Extremities: Other (Erythematous left foot with edema. Lateral aspect of his foot shows an ulcer approximately pea-sized. Bottom of the foot at the fifth metatarsal shows a smaller defect/ulcer.) - Patient Data Lab Results Last 24 hrs: Laboratory Results - last 24 hr 07/24/21 07/24/21 07/25/21 Range/Units 16:44 21:19 05:50 WBC 8.61 (4.23-9.07) K/mm3 RBC 4.18 L (4.63-6.08) M/mm3 Hgb 12.4 L (13.7-17.5) gm/dl Hct 38.2 L (40.1-51.0) % MCV 91.4 (79.0-92.2) fl MCH 29.7 (25.7-32.2) pg MCHC 32.5 (32.2-35.5) g/dl RDW Std Deviation 45.5 H (35.1-43.9) fL Plt Count 312 (163-337) K/mm3 MPV 9.7 (9.4-12.3) fl Neut % (Auto) 64.4 (34.0-67.9) % Lymph % (Auto) 15.7 L (21.8-53.1) % Campbell % (Auto) 14.4 H (5.3-12.2) % Eos % (Auto) 4.3 (0.8-7.0) Baso % (Auto) 0.7 (0.1-1.2) % Neut # (Auto) 5.55 H (1.78-5.38) K/mm3 Lymph # (Auto) 1.35 (1.32-3.57) K/mm3 Campbell # (Auto) 1.24 H (0.30-0.82) K/mm3 Eos # (Auto) 0.37 (0.04-0.54) K/mm3 Baso # (Auto) 0.06 (0.01-0.08) K/mm3 Manual Slide Review Normal smear Sodium (136-145) mEq/L Potassium (3.5-5.1) mEq/L Chloride (98-107) mEq/L Carbon Dioxide (21-32) mEq/L Anion Gap (5-15) BUN (7-18) mg/dL Creatinine (0.7-1.3) mg/dL Est Cr Clr Drug Dosing mL/min Estimated GFR (MDRD) (>60) mL/min BUN/Creatinine Ratio (14-18) Glucose (70-99) mg/dL POC Glucose 213 H 136 H (70-99) mg/dL Calcium (8.5-10.1) mg/dL Magnesium (1.8-2.4) mg/dL Total Bilirubin (0.2-1.0) mg/dL AST (15-37) U/L ALT (16-63) U/L Alkaline Phosphatase (46-116) U/L C-Reactive Protein (<1.0) mg/dL Total Protein (6.4-8.2) g/dl Albumin (3.4-5.0) g/dl Globulin gm/dL Albumin/Globulin Ratio (1-2) 07/25/21 07/25/21 07/25/21 Range/Units 05:50 06:53 11:15 WBC (4.23-9.07) K/mm3 RBC (4.63-6.08) M/mm3 Hgb (13.7-17.5) gm/dl Hct (40.1-51.0) % MCV (79.0-92.2) fl MCH (25.7-32.2) pg MCHC (32.2-35.5) g/dl RDW Std Deviation (35.1-43.9) fL Plt Count (163-337) K/mm3 MPV (9.4-12.3) fl Neut % (Auto) (34.0-67.9) % Lymph % (Auto) (21.8-53.1) % Campbell % (Auto) (5.3-12.2) % Eos % (Auto) (0.8-7.0) Baso % (Auto) (0.1-1.2) % Neut # (Auto) (1.78-5.38) K/mm3 Lymph # (Auto) (1.32-3.57) K/mm3 Campbell # (Auto) (0.30-0.82) K/mm3 Eos # (Auto) (0.04-0.54) K/mm3 Baso # (Auto) (0.01-0.08) K/mm3 Manual Slide Review Sodium 137 (136-145) mEq/L Potassium 4.1 (3.5-5.1) mEq/L Chloride 99 (98-107) mEq/L Carbon Dioxide 30 (21-32) mEq/L Anion Gap 12.1 (5-15) BUN 20 H (7-18) mg/dL Creatinine 1.1 (0.7-1.3) mg/dL Est Cr Clr Drug Dosing 56.22 mL/min Estimated GFR (MDRD) > 60 (>60) mL/min BUN/Creatinine Ratio 18.2 H (14-18) Glucose 98 (70-99) mg/dL POC Glucose 88 222 H (70-99) mg/dL Calcium 8.6 (8.5-10.1) mg/dL Magnesium 1.6 L (1.8-2.4) mg/dL Total Bilirubin 0.3 (0.2-1.0) mg/dL AST 16 (15-37) U/L ALT 23 (16-63) U/L Alkaline Phosphatase 77 (46-116) U/L C-Reactive Protein 11.1 H* (<1.0) mg/dL Total Protein 5.8 L (6.4-8.2) g/dl Albumin 2.3 L (3.4-5.0) g/dl Globulin 3.5 gm/dL Albumin/Globulin Ratio 0.7 L (1-2) Result Diagrams: 07/25/21 05:50 07/25/21 05:50 Jonah Results Last 24 hrs: Microbiology 07/23/21 10:10 Aerobic Culture - Preliminary Skin / Skin Scrapings - Foot, Right Staphylococcus Aureus Gram Stain - Final 07/23/21 10:21 Blood Culture - Preliminary Blood - Venous - Lab Draw 07/23/21 10:11 Blood Culture - Preliminary Blood - Venous Sepsis Event Note - Evaluation Sepsis Screening Result: No Definite Risk - Focused Exam Vital Signs: Vital Signs Temp Pulse Resp BP Pulse Ox 07/25/21 11:17 97.2 F 77 18 125/80 92 L 07/25/21 09:46 84 128/83 90 L 07/25/21 09:45 85 128/83 07/25/21 07:36 97.7 F 86 16 122/66 92 L 07/25/21 04:14 98.4 F 79 18 110/49 L 91 L - Problem List & Annotations (1) Cellulitis of foot, left SNOMED Code(s): 236414406 Code(s): L03.116 - CELLULITIS OF LEFT LOWER LIMB Status: Acute Priority: High Current Visit: Yes (2) Chronic renal insufficiency, stage III (moderate) SNOMED Code(s): 561997224 Code(s): N18.30 - CHRONIC KIDNEY DISEASE, STAGE 3 UNSPECIFIED Status: Chronic Priority: Medium Current Visit: Yes Qualifiers: Chronic kidney disease stage 3 subtype: stage 3a (GFR 45-59) Qualified Code(s): N18.31 - Chronic kidney disease, stage 3a (3) Diabetic neuropathy SNOMED Code(s): 617363658, 664556368, 446239377 Code(s): E11.40 - TYPE 2 DIABETES MELLITUS WITH DIABETIC NEUROPATHY, UNSP Status: Chronic Priority: Medium Current Visit: Yes Qualifiers: Diabetes mellitus type: type 2 Diabetes mellitus complication detail: diabetic polyneuropathy Qualified Code(s): E11.42 - Type 2 diabetes mellitus with diabetic polyneuropathy (4) Type 2 diabetes mellitus SNOMED Code(s): 38246053 Code(s): E11.9 - TYPE 2 DIABETES MELLITUS WITHOUT COMPLICATIONS Status: Chronic Priority: High Current Visit: Yes Qualifiers: Diabetes mellitus alf insulin use: with alf use Diabetes mellitus complication status: with neurologic complications Diabetes mellitus complication detail: with polyneuropathy Qualified Code(s): E11.42 - Type 2 diabetes mellitus with diabetic polyneuropathy; Z79.4 - intermediate frame tender (current) use of insulin - Problem List Review Problem List Initiated/Reviewed/Updated: Yes - My Orders Last 24 Hours: My Active Orders 07/25/21 09:34 Foot wo Cont Lt [CT] Routine - Plan Plan:: Cellulitis of foot, left Open wound of left foot Elevated C-reactive protein (CRP) Diabetic Neuropathy * Outpatient podiatry after discharge * PT wound care * PT evaluation * Every 8 hour meropenem * Vancomycin with pharmacy to dose * Wound cultures pending * Demarcate area of inflammation to monitor improvement/worsening * Continue home gabapentin * As needed pain medications * Elevate extremities at least twice daily * Procalcitonin pending Type 2 diabetes mellitus (A1C 7.5%) * Hold home p.o. diabetic medications * Consistent carbohydrate diet * Medium intensity sliding scale insulin * Continue home long-acting insulin * Consider dietitian consult * Consider swatch paster * 4 times daily before meals and bedtime blood glucose checks TREY (acute kidney injury) * IV fluids as ordered * Caution with nephrotoxic medications * Hold home lisinopril/HCTZ Hyponatremia * Hold home HCTZ * IV fluids as ordered * Recheck labs in a.m. * Check urine protein, urine creatinine, and urine sodium Elevated BNP * No history of CHF * Patient denies any respiratory symptoms * Unilateral left-sided pedal edema due to cellulitis * No orthopnea or other concerns * Will defer further work-up at this time * Consider echocardiogram if warranted COPD (chronic obstructive pulmonary disease) * No acute concerns * Albuterol MDI as needed BPH (benign prostatic hyperplasia) * No acute concerns * Not on any home medications Nicotine use * Nicotine patch as ordered Daily * Cessation counseling * Offer nicotine patches at discharge Code status: Full code PCP: Analy Suarez NP DVT prophylaxis: Lovenox Disposition: Patient mated inpatient for management of failed outpatient left lower extremity cellulitis. Length of stay likely 3 to 4 days pending improvement. 07/24/2021 The patient is a 81-year-old gentleman who was admitted secondary to cellulitis of his left lower lateral distal foot. He is a diabetic and does have polyneuropathy and is likely had contributed to the infection. The wound is open and draining and wound care has been maintaining dressing for him. He is c urrently on vancomycin with pharmacy to dose. He did receive an initial dose of Zyvox in ER. Repeat laboratory studies have been ordered. The patient is also on DVT prophylaxis with the use of Lovenox 40 mg subcutaneous daily. The patient is continue his diabetic diet as well as insulin sliding scale to help better control his blood sugars. The patient has a hemoglobin A1c of 7.5 indicating well-controlled. I have ordered an MRI to help exclude osteomyelitis which would change the course of treatment. He should be appropriate for discharge in 2 to 3 days depending upon MRI or cultures. The patient should have a follow-up outpatient appointment with podiatry upon discharge. 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 Patient is currently on vancomycin and cefepime. White count has dropped from 15.3 on admission down to 8.61. C- reactive protein is lower and dropped from 20.4-11.1. Glucose is moderately controlled with blood sugars in the 100s to low 200s. Hemoglobin A1c is 7.5. He has no sensation in his feet for pain. CT of the foot demonstrated no evidence of osteomyelitis. There was soft tissue swelling and cellulitis of the lateral distal foot. 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 Wound cultures have grown out staph aureus, sensitivities are pending. I spoke with Dr. Kumar and Dr. Chisholm's at [facility] in [place], infectious disease and podiatry respectively, who recommended that he be transferred for further surgical exploration of that foot. Dr. Kumar also recommended switching from cefepime to meropenem to cover anaerobes. Patient was given meropenem 1 g prior to transfer.
[2021-07-25] MEDS: Enoxaparin 40 MG/0.4 ML Syringe SUBCUT SCH (15:01)
[2021-07-25] MEDS ORDERED: Meropenem 1 GM SDV IVPUSH ONE (16:00)
--- NOTE | 2021-07-25 16:07 | PCM.DCSUM1 ---
Discharge Summary - Hospital Course HPI Initial Comments: - History of Present Illness Initial Comments - Free Text/Narative: This is a 81-year-old male who presents to ED on the morning of 07-23-2021 with a diabetic foot ulcer on his left foot which has gotten worse despite outpatient treatment. Per his report he was seen at the clinic on July 20 and diagnosed with a early infection in the scab that was over his left lateral fifth toe. He was started on cephalexin 500 mg 4 times a day. Today he was switching Band-Aids any piece of skin came off which was actively bleeding. His entire foot is now red and warm. It is edematous to the point where he can b ky put a shoe on and he does note some increased pain, although he does have a history of diabetic neuropathy. He has been a type II diabetic since 1982 but rarely checks his sugars. Use a combination of insulin and oral medications for diabetic control. He is a daily half pack a days cigarette smoker. Denies any recent fever, chills, nausea or vomiting. No decreased appetite. In the ED pulse was 79. Respirations 16. Blood pressure 106/72. Pulse ox 97% on room air. Labs are obtained with a WBC that is elevated at 15.34. Hemoglobin is 12.8. Platelet of 283,000. Neutrophils are elevated 83.3%. INR is 1.0. APTT is 32.8. Sodium is low at 130. Potassium 3.8. Chloride 92. Carbon dioxide 28. Anion gap is 13.8. BUN is 26. Creatinine 1.5. GFR is 45. Glucose is 303. Hemoglobin A1c is 7.5. Calcium is 8.4. Magnesium 1.8. Bilirubin 0.5. AST is 18, ALT 21, alkaline phosphatase 83. CRP is 20.4. Protein is 6.9. Albumin 2.7. proBNP is elevated at 2206. X-ray of the left foot is obtained showing soft tissue swelling along the lateral foot but no focal bony erosions are seen. There is also old injury of the medial talus noted. Cellulitis is noted to extend up to the anterior aspect of his left leg with increased warmth. He is given 600 mg linezolid. Blood cultures were obtained prior to IV antibiotics. He carries a history of COPD, BPH, type 2 diabetes, nicotine use, CKD. He is a full code. His PCP is Analy Suarez NP. Assessment/Plan Comment:: Cellulitis of foot, left Open wound of left foot Elevated C-reactive protein (CRP) Diabetic Neuropathy * Outpatient podiatry after discharge * PT wound care * PT evaluation * Every 8 hour meropenem * Vancomycin with pharmacy to dose * Wound cultures pending * Demarcate area of inflammation to monitor improvement/worsening * Continue home gabapentin * As needed pain medications * Elevate extremities at least twice daily * Procalcitonin pending Type 2 diabetes mellitus (A1C 7.5%) * Hold home p.o. diabetic medications * Consistent carbohydrate diet * Medium intensity sliding scale insulin * Continue home long-acting insulin * Consider dietitian consult * Consider clinical document improvement educator * 4 times daily before meals and bedtime blood glucose checks TREY (acute kidney injury) * IV fluids as ordered * Caution with nephrotoxic medications * Hold home lisinopril/HCTZ Hyponatremia * Hold home HCTZ * IV fluids as ordered * Recheck labs in a.m. * Check urine protein, urine creatinine, and urine sodium Elevated BNP * No history of CHF * Patient denies any respiratory symptoms * Unilateral left-sided pedal edema due to cellulitis * No orthopnea or other concerns * Will defer further work-up at this time * Consider echocardiogram if warranted COPD (chronic obstructive pulmonary disease) * No acute concerns * Albuterol MDI as needed BPH (benign prostatic hyperplasia) * No acute concerns * Not on any home medications Nicotine use * Nicotine patch as ordered Daily * Cessation counseling * Offer nicotine patches at discharge Code status: Full code PCP: Analy Suarez NP DVT prophylaxis: Lovenox Disposition: Patient mated inpatient for management of failed outpatient left lower extremity cellulitis. Length of stay likely 3 to 4 days pending improvement. - Mortality Measure Prognosis:: Good Diagnosis: Stroke: No - Discharge Data Discharge Date: 07/25/21 Discharge Disposition: DC/Tfer to Acute Hospital 02 Condition: Good - Referral to Home Health Primary Care Physician: Analy Suarez NP - Discharge Diagnosis/Problem(s) (1) Cellulitis of foot, left SNOMED Code(s): 657806070 ICD Code: L03.116 - CELLULITIS OF LEFT LOWER LIMB Status: Acute Priority: High Current Visit: Yes (2) Chronic renal insufficiency, stage III (moderate) SNOMED Code(s): 243328479 ICD Code: N18.30 - CHRONIC KIDNEY DISEASE, STAGE 3 UNSPECIFIED Status: Chronic Priority: Medium Current Visit: Yes Qualifiers: Chronic kidney disease stage 3 subtype: stage 3a (GFR 45-59) Qualified Code(s): N18.31 - Chronic kidney disease, stage 3a (3) Diabetic neuropathy SNOMED Code(s): 921701393, 085038137, 561096085 ICD Code: E11.40 - TYPE 2 DIABETES MELLITUS WITH DIABETIC NEUROPATHY, UNSP Status: Chronic Priority: Medium Current Visit: Yes Qualifiers: Diabetes mellitus type: type 2 Diabetes mellitus complication detail: diabetic polyneuropathy Qualified Code(s): E11.42 - Type 2 diabetes mellitus with diabetic polyneuropathy (4) Type 2 diabetes mellitus SNOMED Code(s): 10629565 ICD Code: E11.9 - TYPE 2 DIABETES MELLITUS WITHOUT COMPLICATIONS Status: Chronic Priority: High Current Visit: Yes Qualifiers: Diabetes mellitus nursing home insulin use: with nursing home use Diabetes mellitus complication status: with neurologic complications Diabetes mellitus complication detail: with polyneuropathy Qualified Code(s): E11.42 - Type 2 diabetes mellitus with diabetic polyneuropathy; Z79.4 - long-term (current) use of insulin - Patient Summary/Data Consults: Consultations 07/23/21 13:24 Consult to Physical Therapy [PT Evaluation and Treatment] [CONS] Routine 07/23/21 15:40 PT Evaluation and Treatment [CONS] Routine Hospital Course: 07/24/2021 The patient is a 81-year-old gentleman who was admitted secondary to cellulitis of his left lower lateral distal foot. He is a diabetic and does have polyneuropathy and is likely had contributed to the infection. The wound is open and draining and wound care has been maintaining dressing for him. He is currently on vancomycin with pharmacy to dose. He did receive an initial dose of Zyvox in ER. Repeat laboratory studies have been ordered. The patient is also on DVT prophylaxis with the use of Lovenox 40 mg subcutaneous daily. The patient is continue his diabetic diet as well as insulin sliding scale to help better control his blood sugars. The patient has a hemoglobin A1c of 7.5 indicating well-controlled. I have ordered an MRI to help exclude osteomyelitis which would change the course of treatment. He should be appropriate for discharge in 2 to 3 days depending upon MRI or cultures. The patient should have a follow-up outpatient appointment with podiatry upon discharge. 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 Patient is currently on vancomycin and cefepime. White count has dropped from 15.3 on admission down to 8.61. C- reactive protein is lower and dropped from 20.4-11.1. Glucose is moderately controlled with blood sugars in the 100s to low 200s. Hemoglobin A1c is 7.5. He has no sensation in his feet for pain. CT of the foot demonstrated no evidence of osteomyelitis. There was soft tissue swelling and cellulitis of the lateral distal foot. 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 Wound cultures have grown out staph aureus, sensitivities are pending. I spoke with Dr. Kumar and Dr. Chisholm's at [facility] in [place], infectious disease and podiatry respectively, who recommended that he be transferred for further surgical exploration of that foot. Dr. Kumar also recommended switching from cefepime to meropenem to cover anaerobes. Patient was given meropenem 1 g prior to transfer. - Discharge Plan *PRESCRIPTION DRUG MONITORING PROGRAM REVIEWED*: Not Applicable *COPY OF PRESCRIPTION DRUG MONITORING REPORT IN PATIENT THOMAS: Not Applicable Home Medications: Home Meds Alpha Lipoic Acid [Lipoic Acid] 1 tab PO DAILY 07/23/21 [History] Aspirin 81 mg PO DAILY 07/23/21 [History] Calcium Carbonate/Vitamin D3 [Calcium 250+D] 1 tab PO DAILY 07/23/21 [History] Cholecalciferol (Vitamin D3) [Vitamin D3] 5,000 unit PO DAILY 07/23/21 [History] Cyanocobalamin (Vitamin B-12) [B-12] 1 tab PO DAILY 07/23/21 [History] Folic Acid 1 mg PO DAILY 07/23/21 [History] Gabapentin [Neurontin] 600 mg PO TID 07/23/21 [History] Glimepiride [Amaryl] 2 mg PO BID 07/23/21 [History] Insulin Glargine,Hum.Rec.Anlog [Touoral Solostar] 20 units SQ BEDTIME 07/23/21 [History] L.acidoph,Paracasei, B.lactis [Probiotic] 1 tab PO DAILY 07/23/21 [History] Lisinopril/Hydrochlorothiazide [Lisinopril-Hctz 20-25 mg Tab] 1 tab PO DAILY 07/23/21 [History] Magnesium Oxide [Magnesium] 500 mg PO DAILY 07/23/21 [History] Metoprolol Succinate 50 mg PO DAILY 07/23/21 [History] Omeprazole 20 mg PO BID 07/23/21 [History] Saw [place] 1 tab PO DAILY 07/23/21 [History] Saxagliptin HCl [Onglyza] 5 mg PO DAILY 07/23/21 [History] Simvastatin 40 mg PO DAILY 07/23/21 [History] Vit A/C/E/Zinc/Selenium/Copper [Vision Formula Tablet] 1 tab PO DAILY 07/23/21 [History] Zinc 1 tab PO DAILY 07/23/21 [History] cephALEXin [Cephalexin] 500 mg PO QID 07/23/21 [History] metFORMIN [Glucophage XR] 1,000 mg PO BEDTIME 07/23/21 [History] metFORMIN [Glucophage XR] 1,500 mg PO DAILY 07/23/21 [History] Oxygen Therapy Mode: Room Air Patient Handouts: Cellulitis, Adult, Heart Failure, Self Care, Diabetes Mellitus and Sick Day Management, Sepsis, Diagnosis, Adult, Steps to Quit Smoking Forms: ED Department Discharge Referrals: Analy Suarez NP [Primary Care Provider] - - Discharge Summary/Plan Comment DC Time >30 min.: Yes Total # of Minutes for Discharge Time: 60 min Total time spent includes seeing the patient, doing discharge paperwork, and arranging care. - Patient Data Vitals - Most Recent: Last Vital Signs Temp 98.2 F 07/25/21 15:22 Pulse 64 07/25/21 15:22 Resp 16 07/25/21 15:22 BP 113/74 07/25/21 15:22 Pulse Ox 93 L 07/25/21 15:22 Weight - Most Recent: 184 lb 8 oz I&O - Last 24 hours: Intake & Output 07/25/21 07/25/21 07/25/21 06:59 14:59 22:59 Intake Total 550 240 175 Output Total 2300 Balance -1750 240 175 Lab Results - Last 24 hrs: Laboratory Results - last 24 hr 07/24/21 07/24/21 07/25/21 Range/Units 16:44 21:19 05:50 WBC 8.61 (4.23-9.07) K/mm3 RBC 4.18 L (4.63-6.08) M/mm3 Hgb 12.4 L (13.7-17.5) gm/dl Hct 38.2 L (40.1-51.0) % MCV 91.4 (79.0-92.2) fl MCH 29.7 (25.7-32.2) pg MCHC 32.5 (32.2-35.5) g/dl RDW Std Deviation 45.5 H (35.1-43.9) fL Plt Count 312 (163-337) K/mm3 MPV 9.7 (9.4-12.3) fl Neut % (Auto) 64.4 (34.0-67.9) % Lymph % (Auto) 15.7 L (21.8-53.1) % [place] % (Auto) 14.4 H (5.3-12.2) % Eos % (Auto) 4.3 (0.8-7.0) Baso % (Auto) 0.7 (0.1-1.2) % Neut # (Auto) 5.55 H (1.78-5.38) K/mm3 Lymph # (Auto) 1.35 (1.32-3.57) K/mm3 [place] # (Auto) 1.24 H (0.30-0.82) K/mm3 Eos # (Auto) 0.37 (0.04-0.54) K/mm3 Baso # (Auto) 0.06 (0.01-0.08) K/mm3 Manual Slide Review Normal smear Sodium (136-145) mEq/L Potassium (3.5-5.1) mEq/L Chloride (98-107) mEq/L Carbon Dioxide (21-32) mEq/L Anion Gap (5-15) BUN (7-18) mg/dL Creatinine (0.7-1.3) mg/dL Est Cr Clr Drug Dosing mL/min Estimated GFR (MDRD) (>60) mL/min BUN/Creatinine Ratio (14-18) Glucose (70-99) mg/dL POC Glucose 213 H 136 H (70-99) mg/dL Calcium (8.5-10.1) mg/dL Magnesium (1.8-2.4) mg/dL Total Bilirubin (0.2-1.0) mg/dL AST (15-37) U/L ALT (16-63) U/L Alkaline Phosphatase (46-116) U/L C-Reactive Protein (<1.0) mg/dL Total Protein (6.4-8.2) g/dl Albumin (3.4-5.0) g/dl Globulin gm/dL Albumin/Globulin Ratio (1-2) Vancomycin Trough (10.0-20.0) 07/25/21 07/25/21 07/25/21 Range/Units 05:50 06:53 11:15 WBC (4.23-9.07) K/mm3 RBC (4.63-6.08) M/mm3 Hgb (13.7-17.5) gm/dl Hct (40.1-51.0) % MCV (79.0-92.2) fl MCH (25.7-32.2) pg MCHC (32.2-35.5) g/dl RDW Std Deviation (35.1-43.9) fL Plt Count (163-337) K/mm3 MPV (9.4-12.3) fl Neut % (Auto) (34.0-67.9) % Lymph % (Auto) (21.8-53.1) % [place] % (Auto) (5.3-12.2) % Eos % (Auto) (0.8-7.0) Baso % (Auto) (0.1-1.2) % Neut # (Auto) (1.78-5.38) K/mm3 Lymph # (Auto) (1.32-3.57) K/mm3 [place] # (Auto) (0.30-0.82) K/mm3 Eos # (Auto) (0.04-0.54) K/mm3 Baso # (Auto) (0.01-0.08) K/mm3 Manual Slide Review Sodium 137 (136-145) mEq/L Potassium 4.1 (3.5-5.1) mEq/L Chloride 99 (98-107) mEq/L Carbon Dioxide 30 (21-32) mEq/L Anion Gap 12.1 (5-15) BUN 20 H (7-18) mg/dL Creatinine 1.1 (0.7-1.3) mg/dL Est Cr Clr Drug Dosing 56.22 mL/min Estimated GFR (MDRD) > 60 (>60) mL/min BUN/Creatinine Ratio 18.2 H (14-18) Glucose 98 (70-99) mg/dL POC Glucose 88 222 H (70-99) mg/dL Calcium 8.6 (8.5-10.1) mg/dL Magnesium 1.6 L (1.8-2.4) mg/dL Total Bilirubin 0.3 (0.2-1.0) mg/dL AST 16 (15-37) U/L ALT 23 (16-63) U/L Alkaline Phosphatase 77 (46-116) U/L C-Reactive Protein 11.1 H* (<1.0) mg/dL Total Protein 5.8 L (6.4-8.2) g/dl Albumin 2.3 L (3.4-5.0) g/dl Globulin 3.5 gm/dL Albumin/Globulin Ratio 0.7 L (1-2) Vancomycin Trough (10.0-20.0) 07/25/21 Range/Units 15:10 WBC (4.23-9.07) K/mm3 RBC (4.63-6.08) M/mm3 Hgb (13.7-17.5) gm/dl Hct (40.1-51.0) % MCV (79.0-92.2) fl MCH (25.7-32.2) pg MCHC (32.2-35.5) g/dl RDW Std Deviation (35.1-43.9) fL Plt Count (163-337) K/mm3 MPV (9.4-12.3) fl Neut % (Auto) (34.0-67.9) % Lymph % (Auto) (21.8-53.1) % [place] % (Auto) (5.3-12.2) % Eos % (Auto) (0.8-7.0) Baso % (Auto) (0.1-1.2) % Neut # (Auto) (1.78-5.38) K/mm3 Lymph # (Auto) (1.32-3.57) K/mm3 [place] # (Auto) (0.30-0.82) K/mm3 Eos # (Auto) (0.04-0.54) K/mm3 Baso # (Auto) (0.01-0.08) K/mm3 Manual Slide Review Sodium (136-145) mEq/L Potassium (3.5-5.1) mEq/L Chloride (98-107) mEq/L Carbon Dioxide (21-32) mEq/L Anion Gap (5-15) BUN (7-18) mg/dL Creatinine (0.7-1.3) mg/dL Est Cr Clr Drug Dosing mL/min Estimated GFR (MDRD) (>60) mL/min BUN/Creatinine Ratio (14-18) Glucose (70-99) mg/dL POC Glucose (70-99) mg/dL Calcium (8.5-10.1) mg/dL Magnesium (1.8-2.4) mg/dL Total Bilirubin (0.2-1.0) mg/dL AST (15-37) U/L ALT (16-63) U/L Alkaline Phosphatase (46-116) U/L C-Reactive Protein (<1.0) mg/dL Total Protein (6.4-8.2) g/dl Albumin (3.4-5.0) g/dl Globulin gm/dL Albumin/Globulin Ratio (1-2) Vancomycin Trough 7.3 L (10.0-20.0) JUNIOR Results - Last 24 hrs: Microbiology 07/23/21 10:10 Aerobic Culture - Preliminary Skin / Skin Scrapings - Foot, Right Staphylococcus Aureus Gram Stain - Final 07/23/21 10:21 Blood Culture - Preliminary Blood - Venous - Lab Draw 07/23/21 10:11 Blood Culture - Preliminary Blood - Venous Med Orders - Current: Current Medications Acetaminophen (Acetaminophen 325 Mg Tab) 650 mg PO Q4H PRN PRN Reason: Pain (Mild 1-3)/fever Last Admin: 07/25/21 10:04 Dose: 650 mg Documented by: Albuterol (Albuterol 6.7 Gm Inhaler) 0 gm INH Q2H PRN PRN Reason: SOB/Wheezing Aspirin (Aspirin 81 Mg Tab.Chew) [address] [facility] Last Admin: 07/25/21 09:47 Dose: 81 mg Documented by: Calcium Carbonate (Calcium Carbonate/Vitamin D3 600 Mg-200 Units Tab) [address] [facility] Last Admin: 07/25/21 09:44 Dose: 1 tab Documented by: Cholecalciferol (Cholecalciferol (Vitamin D3) 5,000 Unit Cap) 5,[address] [facility] Last Admin: 07/25/21 09:47 Dose: 5,000 unit Documented by: Cyanocobalamin (Cyanocobalamin (Vitamin B12) 1,000 Mcg Tab) 1,[address] [facility] Last Admin: 07/25/21 09:48 Dose: 1,000 mcg Documented by: Enoxaparin Sodium (Enoxaparin 40 Mg/0.4 Ml Syringe) [address] [facility] Last Admin: 07/25/21 15:01 Dose: 40 mg Documented by: Folic Acid (Folic Acid 1 Mg Tab) [address] [facility] Last Admin: 07/25/21 09:48 Dose: 1 mg Documented by: Gabapentin (Gabapentin 300 Mg Cap) [address] [facility] Last Admin: 07/25/21 15:01 Dose: 600 mg Documented by: Vancomycin HCl 1 gm/Vancomycin HCl 250 mg/ Sodium Chloride 250 mls @ 166.667 mls/hr IV Q24H [facility] Last Admin: 07/24/21 15:49 Dose: 166.667 mls/hr Documented by: Insulin Glargine (Insulin Glargine,Hum.Rec.Anlog 100 Unit/Ml 3 Ml Pen) [address] [facility] Last Admin: 07/24/21 21:41 Dose: 20 units Documented by: Insulin Human Lispro (Insulin Lispro 100 Unit/Ml 3 Ml Kwikpen) [address] [facility]; Protocol Last Admin: 07/25/21 11:44 Dose: 4 units Documented by: Magnesium Oxide (Magnesium Oxide 400 Mg Tab) [address] [facility] Last Admin: 07/25/21 09:45 Dose: 400 mg Documented by: Meropenem (Meropenem 1 Gm Sdv) 1 gm IVPUSH ONETIME ONE Stop: 07/25/21 16:01 Metoprolol Succinate (Metoprolol Succinate 50 Mg Tab.Er) [address] [facility] Last Admin: 07/25/21 09:45 Dose: 50 mg Documented by: Miscellaneous Information (Remove And Replace Nicotine Patch) [address] [facility] Last Admin: 07/25/21 09:51 Dose: 1 ea Documented by: Nicotine (Nicotine 14 Mg/24 Hr Patch) [address] [facility] Last Admin: 07/25/21 09:48 Dose: 14 mg Documented by: Ondansetron HCl (Ondansetron 4 Mg/2 Ml Sdv) 4 mg IV Q6H PRN PRN Reason: Nausea/Vomiting Oxycodone HCl (Oxycodone 5 Mg Tab) 5 mg PO Q4H PRN PRN Reason: Pain (moderate 4-6) Pantoprazole Sodium (Pantoprazole 40 Mg Tab.Cr) 40 mg PO DAILY@0700 [facility] Last Admin: 07/25/21 09:58 Dose: 40 mg Documented by: Saccharomyces Boulardii (Saccharomyces Boulardii (Probiotic) 250 Mg Cap) [address] [facility] Last Admin: 07/25/21 09:45 Dose: 250 mg Documented by: Senna/Docusate Sodium (Docusate Sodium/Sennosides 50-8.6 Mg Tab) 1 tab PO BID PRN PRN Reason: Constipation Simvastatin (Simvastatin 40 Mg Tab) [address] [facility] Last Admin: 07/25/21 09:47 Dose: 40 mg Documented by: Sodium Chloride (Sodium Chloride 0.9% 10 Ml Syringe) 10 ml FLUSH ASDIRECTED PRN PRN Reason: Keep Vein Open Last Admin: 07/23/21 10:14 Dose: 10 ml Documented by: Vancomycin HCl (Pharmacy To Dose - Vancomycin) 0 dose .XX ASDIRECTED PRN PRN Reason: RX TO DOSE VANCOMYCIN Discontinued Medications Linezolid 600 mg/ Premix 300 mls @ 300 mls/hr IV ONETIME ONE Stop: 07/23/21 10:44 Last Admin: 07/23/21 10:13 Dose: 300 mls/hr Documented by: Cefepime HCl 2 gm/ Sodium (Chloride) 50 mls @ 100 mls/hr IV Q8H [facility] Last Admin: 07/25/21 09:27 Dose: 100 mls/hr Documented by: Vancomycin HCl 2 gm/ Sodium (Chloride) 500 mls @ 250 mls/hr IV ONETIME ONE Stop: 07/23/21 17:59 Last Admin: 07/23/21 16:27 Dose: 250 mls/hr Documented by: Sodium Chloride (Normal Saline) 1,000 mls @ 75 mls/hr IV ASDIRECTED [facility] Stop: 07/24/21 05:34 Last Admin: 07/23/21 19:15 Dose: 75 mls/hr Documented by: Magnesium Sulfate 2 gm/ Premix 50 mls @ 25 mls/hr IV ONETIME ONE Stop: 07/25/21 16:00 Last Admin: 07/25/21 14:51 Dose: 25 mls/hr Documented by: Morphine Sulfate (Morphine 2 Mg/Ml Syringe) 2 mg IVPUSH Q2H PRN PRN Reason: Pain (severe 7-10) Stop: 07/24/21 15:40 Non-Formulary Medication (Metformin) 1,000 mg PO BEDTIME CRISTELA Non-Formulary Medication (Metformin) 1,500 mg PO DAILY [facility]RISTELA Potassium Bicarbonate (Potassium Bicarbonate/Cit Ac 10 Meq Effervescent Tab) 10 meq PO ONETIME ONE Stop: 07/24/21 09:16 Last Admin: 07/24/21 09:31 Dose: 10 meq Documented by:
[2021-07-25] MEDS ORDERED: Meropenem 1 GM in Sodium Chloride 0.9% 100 ML IV ONE (16:30)
[2021-07-25] MEDS ORDERED: Vancomycin 1 GM, Vancomycin 500 MG in Sodium Chloride 0.9% 500 ML IV SCH (16:30)
[2021-07-25] MEDS: Vancomycin 1 GM, Vancomycin 250 MG in Sodium Chloride 0.9% 250 ML IV SCH (17:02)
--- NOTE | 2021-07-27 13:59 | CT ---
EXAM: CT FOOT, UNI W/O LEFT LOCATION: [facility] DATE/TIME: 07/25/2021 11:48 AM INDICATION: Left; patient history: pain medial and plantar left foot. Osteomyelitis versus cellulitis. COMPARISON: None. TECHNIQUE: Noncontrast. Axial, sagittal and coronal thin-section reconstruction. Dose reduction techniques were used. FINDINGS: BONES: -There is no evidence for acute fracture. There are some amorphous calcifications likely loose within the tibiotalar joint. These appear chronic, potentially related to old injury or a component of chronic synovitis. There are old fracture fragments or ossification centers adjacent to the medial malleolus. These are also chronic. There is degenerative change at the talonavicular and subtalar joints. There is degenerative change at the calcaneocuboid articulation. There is some degenerative change at the 1st MTP joint. SOFT TISSUES: -Tiny tibiotalar joint effusion. There is some soft tissue irregularity along the lateral aspect of the forefoot. This is consistent with surface ulceration, and there is gas within the subcutaneous soft tissues around this region. No organized fluid collection is identified to suggest abscess, but there is definite edema or cellulitis along the dorsal and lateral aspect of the foot. IMPRESSION: 1. No evidence for fracture. 2. No CT evidence for osteomyelitis. MRI would be more sensitive to assess for the presence or absence of bone signal abnormality. 3. No evidence for abscess. 4. There is a soft tissue ulceration with some gas in the subcutaneous soft tissues which likely tracked in through the surface wound along the inferolateral aspect of the forefoot. No evidence for associated foreign body. No evidence for abscess. 5. There are chronic-appearing calcifications about the tibiotalar joint, none of which appears secondary to acute injury. This is likely technical sales representatives of a combination of old injury or ununited ossicles. Potentially one of the calcifications could be loose within the tibiotalar joint, however. 6. Extensive edema or cellulitis along the dorsal aspect and lateral aspect of the foot. SIGNED BY: Bharath Blanco MD 07/27/2021 12:43 PM [facility]
== END 2021-07-25 18:50 | DRG 638 ==
LOC: JD.ED 08:54 → JD.MS 13:03
PROVIDERS: ADMIT Emergency Medicine; ATTEND Internal Medicine
DX: E11.628 Type 2 diabetes mellitus with other skin complications (principal); L03.116 Cellulitis of left lower limb; E87.1 Hypo-osmolality and hyponatremia; I50.32 Chronic diastolic (congestive) heart failure; E11.42 Type 2 diabetes mellitus with diabetic polyneuropathy; N18.31 Chronic kidney disease, stage 3a; F17.210 Nicotine dependence, cigarettes, uncomplicated; N18.32 Chronic kidney disease, stage 3b; H54.7 Unspecified visual loss; S91.302A Unspecified open wound, left foot, initial encounter; J44.9 Chronic obstructive pulmonary disease, unspecified; N17.9 Acute kidney failure, unspecified; R79.82 Elevated C-reactive protein (CRP); E11.621 Type 2 diabetes mellitus with foot ulcer; Z79.82 Long term (current) use of aspirin; N40.0 Benign prostatic hyperplasia without lower urinary tract symptoms; Z79.4 Long term (current) use of insulin; M72.9 Fibroblastic disorder, unspecified; Z79.899 Other long term (current) drug therapy; Z20.822 Contact with and (suspected) exposure to COVID-19
CPT/HCPCS: 36415; 73630; 80053; 82947; 83036; 83735; 83880; 84145; 85025; 85610; 85730; 86140; 87040 ×2; 87070; 87075; 87077; 87186; 87205; 99285; J2020; 73700-26-LT; 73700-LT; 80202; 81003; 82570; 84300; 97162-GP; 97530-GP; 97597-GP; A9270-GY; J0692; J1650; J1815; J2185; J3370; J3475; J7030; J7040; J7050; U0002

== ENCOUNTER 2023-04-07 07:32 | Day surgery (SDC) | payer MEDICARE, BC ==
[~2023-04-07 07:32] MED LIST: Lactated Ringers 1,000 ML IV SCH; Sodium Chloride 0.9% 10 ML Syringe FLUSH PRN; Sodium Chloride 0.9% 10 ML Syringe FLUSH SCH
[2023-04-07] MEDS ORDERED: Propofol 200 MG/20 ML SDV ONE (08:47)
[2023-04-07] MEDS ORDERED: fentaNYL 100 MCG/2 ML SDV ONE (08:48)
[2023-04-07] MEDS ORDERED: Sodium Chloride 0.9% 10 ML Syringe FLUSH SCH (09:00)
== END 2023-04-07 10:00 | disposition home or self-care (01) ==
LOC: JD.SDS 07:32
PROVIDERS: ATTEND Surgery
DX: D12.0 Benign neoplasm of cecum (principal); D12.2 Benign neoplasm of ascending colon; D50.9 Iron deficiency anemia, unspecified; I12.9 Hypertensive chronic kidney disease with stage 1 through stage 4 chronic kidney disease, or unspecified chronic kidney disease; N18.30 Chronic kidney disease, stage 3 unspecified; J44.9 Chronic obstructive pulmonary disease, unspecified; H35.00 Unspecified background retinopathy; K21.9 Gastro-esophageal reflux disease without esophagitis; I99.9 Unspecified disorder of circulatory system; L97.509 Non-pressure chronic ulcer of other part of unspecified foot with unspecified severity; E11.40 Type 2 diabetes mellitus with diabetic neuropathy, unspecified; E11.22 Type 2 diabetes mellitus with diabetic chronic kidney disease; N40.0 Benign prostatic hyperplasia without lower urinary tract symptoms; E11.319 Type 2 diabetes mellitus with unspecified diabetic retinopathy without macular edema; E78.00 Pure hypercholesterolemia, unspecified; E78.5 Hyperlipidemia, unspecified; Z79.82 Long term (current) use of aspirin; Z79.899 Other long term (current) drug therapy; Z79.84 Long term (current) use of oral hypoglycemic drugs; Z86.69 Personal history of other diseases of the nervous system and sense organs; Z98.49 Cataract extraction status, unspecified eye; Z87.891 Personal history of nicotine dependence
CPT/HCPCS: 43235; 45385; 82947; J2704; J3010; J7120; 00813; 88305; 99100

== ENCOUNTER 2024-08-13 21:50 | Emergency (ER) | payer MEDICARE ==
[2024-08-13 22:56] LABS: BASOPHILS ABSOLUTE AUTO 0.1 K/mm3 (0.0-0.2); BASOPHILS PERCENT AUTO 1.1 % (0.0-1.0); EOSINOPHILS ABSOLUTE AUTO 0.4 K/mm3 (0.0-0.4); EOSINOPHILS PERCENT AUTO 4.6 % (0.0-6.0); HEMATOCRIT 60.3 % (42.0-52.0); HEMOGLOBIN 18.7 gm/dl (14.0-18.0); IMMATURE GRAN ABSOLUTE AUTO 0.03 K/mm3 (0.00-0.05); IMMATURE GRAN PERCENT AUTO 0.3 % (0.0-0.4); LYMPHOCYTES ABSOLUTE AUTO 2.3 K/mm3 (1.0-4.8); LYMPHOCYTES PERCENT AUTO 26.1 % (24.0-44.0); MEAN CORPUSCULAR HEMOGLOBIN 29.3 pg (28.0-32.0); MEAN CORPUSCULAR VOLUME 94.4 fl (83.0-99.0); MEAN PLATELET VOLUME 9.7 fl (9.4-12.4); MONOCYTES PERCENT AUTO 10.9 % (0.0-8.0); NEUTROPHILS ABSOLUTE AUTO 5.1 K/mm3 (1.8-7.7); PLATELET COUNT,PLT 223 K/mm3 (150-400); RED BLOOD CELL COUNT 6.39 M/mm3 (4.52-5.90); WHITE BLOOD CELL COUNT,WBC 8.94 K/mm3 (3.9-11.3)
[2024-08-13 22:57] LABS: APPEARANCE,URINE CLEAR (Clear); BILIRUBIN,URINE NEGATIVE (Negative); COLOR,URINE YELLOW (Yellow); GLUCOSE,URINE 2+ (Negative); KETONES,URINE NEGATIVE (Negative); LEUKOCYTE ESTERASE,URINE TRACE (Negative); NITRITE,URINE NEGATIVE (Negative); OCCULT BLOOD,URINE NEGATIVE (Negative); PROTEIN,URINE TRACE (Negative); UROBILINOGEN,URINE 0.2 (0.2-1.0)
[2024-08-13 23:08] LABS: BACTERIA,URINE FEW /hpf (FEW); MUCUS,URINE NOT SEEN /hpf (FEW); RBC,URINE 0-5 /hpf (0-5); SQUAMOUS EPITHELIAL CELLS,UR 0-5 /hpf (0-5)
[2024-08-13 23:17] LABS: ALBUMIN 3.9 g/dl (3.4-5.0); ANION GAP 15.5 (5-15); BILIRUBIN TOTAL 0.3 mg/dL (0.2-1.0); BUN/CREATININE RATIO 24.7 (14-18); CALCIUM 8.8 mg/dL (8.5-10.1); CREATININE 1.5 mg/dL (0.7-1.3); EST CRCL DRUG DOSING (CG) 39.2 mL/min; POTASSIUM,K 4.5 mEq/L (3.5-5.1); PROTEIN TOTAL,TP 7.9 g/dl (6.4-8.2)
== END 2024-08-14 01:07 | disposition home or self-care (01) ==
LOC: JD.ED 21:50
DX: R33.9 Retention of urine, unspecified (principal); R82.90 Unspecified abnormal findings in urine; I13.0 Hypertensive heart and chronic kidney disease with heart failure and stage 1 through stage 4 chronic kidney disease, or unspecified chronic kidney disease; I50.9 Heart failure, unspecified; N18.9 Chronic kidney disease, unspecified; J44.9 Chronic obstructive pulmonary disease, unspecified; K21.9 Gastro-esophageal reflux disease without esophagitis; E11.22 Type 2 diabetes mellitus with diabetic chronic kidney disease; E11.42 Type 2 diabetes mellitus with diabetic polyneuropathy; Z86.16 Personal history of COVID-19; Z79.82 Long term (current) use of aspirin; Z79.4 Long term (current) use of insulin; Z79.84 Long term (current) use of oral hypoglycemic drugs; Z79.899 Other long term (current) drug therapy
CPT/HCPCS: 36415; 80053; 81001; 85025; 87086; 99283; 99284